=== PATIENT | male | born 1965 | race Caucasian/White ===

== ENCOUNTER 2021-10-07 19:37 | Inpatient (IN) | payer MEDICARE, SELFPAY ==
[2021-10-07] VITALS (7 sets, daily range): BP systolic 94–101; BP diastolic 56–62; PULSE 79–90; RESP 14–18; TEMP 36.4–37.1; O2SAT 87–99; BMI 39.8; BMI 38.9
--- NOTE | 2021-10-07 20:06 | CT_ITS ---
EXAM: CT HEAD WITHOUT INTRAVENOUS CONTRAST CLINICAL INDICATION: altered mental status RADIATION DOSE: CTDIvol = 44.99 mGy, DLP = 880.47 mGy-cm COMPARISON: None. FINDINGS: BRAIN AND EXTRA-AXIAL SPACES: Unremarkable. No intra- or extra-axial hemorrhage. No evidence of acute infarct. No intracranial mass or mass effect. There is preservation of the burt/white matter interface. Posterior fossa structures are unremarkable. Ventricles are appropriate for age. No hydrocephalus. Basal cisterns are patent. BONES/JOINTS: Unremarkable. No discrete lytic or blastic abnormalities. SINUSES: Unremarkable. Completely included. MASTOID AIR CELLS: Unremarkable. Clear. ORBITS: Visualized globes, extraocular muscles, optic nerves and retrobulbar fat appear unremarkable. CT/Brain/Head without Contrast IMPRESSION: Negative head/brain CT without intravenous contrast. Electronically Signed: Nikki Moss MD at 21:09 EDT ,
--- NOTE | 2021-10-07 20:06 | EKG12_ITS ---
Test Reason : DYSRHYTHMIA Blood Pressure : / mmHG Vent. Rate : 090 BPM Atrial Rate : 090 BPM P-R Int : 190 ms QRS Dur : 094 ms QT Int : 338 ms P-R-T Axes : 000 025 005 degrees QTc Int : 413 ms Normal sinus rhythm Normal ECG Confirmed by CHADD ALICEA, DANA ([id number]), online editor ASHLEIGH LOVELL ([id number]) on 10/08/2021 11:21:02 AM Referred By: YOSELIN Confirmed By:DANA FLORENTINO MD
[2021-10-07] MEDS: 0.9% Normal Saline 1,000 ML 1000 ML IV ×2 (20:10→21:29)
--- NOTE | 2021-10-07 20:10 | EX.ED.DYSGE1 ---
HPI History of Present Illness Chief Complaint: General Illness Narrative Narrative: 56-year-old male presenting with confusion, shakiness. Patient states he has been sleepy for the past 2 days. He does not remember the full day before this. He states that he was sleeping at [facility]. He remembers he was there with his father. He states that he woke up a couple of times after the first day that he does not remember and was very sleepy and was told to go back to sleep. He slept most of the second and third days. He states that he was sleeping on a mattress and kept falling off of it and hit his head on a cooler. He has a scratch on his forehead. Patient also states that he called his daughters today to pick him up at about 4 and they showed up at [address] back to the hospital they realized he forgot his wallet could not turn back around to the campground and then come back to the hospital. He is still complaining of generalized weakness and fatigue. He states his body is still shaky. He denies doing any alcohol. Patient has chronic pain and is on gabapentin, topiramate, baclofen, Dilaudid. He states he did not use more than his normal dose. He and his daughter stated that he has never overdosed on them. He denies any other illicit drugs. No fevers or chills. No cough or shortness of breath. [facility] Medical History Complex regional pain syndrome Diabetes Hypertension Tachycardia Allergy/AdvReac Type Severity Reaction Status Date / Time adhesive tape Allergy Other Verified 10/07/21 19:41 Sulfa (Sulfonamide Allergy Hives Verified 10/07/21 19:41 Antibiotics) Social History Smoking Status: Current every day smoker tobacco type: smokeless tobacco ROS ROS ED Constitutional Constitutional ED: Denies chills or fever(s) Eyes Eyes: Denies diplopia ENT ENT ED: Denies rhinorrhea or sore throat Cardiovascular Cardiovascular: Denies chest pain or palpitations Respiratory/Chest Respiratory/Chest: Denies cough or dyspnea Gastrointestinal Gastrointestinal: Denies abdominal pain or constipation Genitourinary Genitourinary ED: Denies dysuria or hematuria Musculoskeletal Musculoskeletal: Denies arthralgias or back pain Integumentary Denies abscess Neurologic Neurologic: Denies headache(s) or paresthesias Psychiatric Psychiatric: Denies anxiety or depression Endocrine Endocrinology: Denies cold intolerance or heat intolerance EXAM Physical Exam Const Vital Signs: 10/07/21 19:38 10/07/21 20:04 10/07/21 20:58 Temperature 97.5 F L Temperature Source Temporal Pulse Rate 90 Respiratory Rate 18 Respiratory Effort Normal Respiratory Pattern Normal Blood Pressure 96/56 L Blood Pressure Mean 69 Pulse Ox 92 87 Oxygen Delivery Method Room Air Room Air Oxygen Flow Rate (L/min) 10/07/21 20:59 10/07/21 21:00 Temperature Temperature Source Pulse Rate 84 Respiratory Rate 17 Respiratory Effort Respiratory Pattern Blood Pressure 94/62 Blood Pressure Mean 72 Pulse Ox 93 93 Oxygen Delivery Method Nasal Cannula Nasal Cannula Oxygen Flow Rate (L/min) 2 2 Positive obese and unkempt General Appearance ED: unkempt; Negative for pallor Nutritional Appearance: obese HEENT Reports dry mucous membranes Mouth ED: Yes dry mucous membranes Mouth: dry mucous membranes Eyes PERRL and EOMs intact bilaterally General Eye ED: Yes pale conjunctiva and scleral icterus Chest Wall inspection of chest normal and palpation of chest normal Resp normal respiratory effort and clear to auscultation bilaterally Cardio regular rate, regular rhythm and S1 normal heart sound GI normal to inspection, nondistended, normoactive bowel sounds Back/Spine no CVA tenderness Extremity General Extremety ED: Negative for edema or tenderness General Extremity: Negative for edema Neuro oriented x3, CN's II-XII intact bilaterally and no sensory deficits noted Sensorium / Orientation: alert Motor Exam: strength 5/5 throughout Psych mental status grossly normal Appearance: unkempt Skin no rashes or lesions noted General Skin Exam: Negative for jaundice or pallor MDM MDM MDM Narrative Medical decision making narrative: Presenting with a vague story of not remembering the last few days as well as vomiting when he woke up. Has been sleeping at a campground in the heat. He states he is not able to hold down fluids. He denied alcohol abuse or use. His EtOH is negative. Drug review screen is positive for opioids but he is prescribed these. CBC shows a leukocytosis of 15.2 which is likely from vomiting because his chest x-ray on my interpretation shows no acute cardiopulmonary process. His urinalysis is negative for infection. Hemoglobin is normal at 14.4. Platelets 335. Potassium slightly elevated at 5.4. Patient's EKG shows a sinus rhythm with ventricular 90 bpm without sign of ischemic change or dysrhythmia. No hyperacute T's. She will be treated with IV fluids. Creatinine is elevated at 6.15 and a BUN of 55. Patient states that he has no history of kidney problems and he gets his blood work checked all the time. I did look on [employer] and I cannot find any lab values on him except for drug screens for pain management. Given this I will treat him as acute kidney injury. He was given 2 L of IV fluids while in the ER. His urine was very dark. I did order a CPK which came back at 5500. CT of the brain is negative for acute findings. I spoke with the hospitalist for admission. Impression: 1. Acute kidney injury 2. Leukocytosis 3. Rhabdomyolysis 4. Hyperkalemia Lab Data Attestation: I reviewed the patient's lab results. Labs: Laboratory Results - last 24 hr 10/07/21 10/07/21 10/07/21 20:00 20:00 20:00 WBC 15.2 H RBC 4.66 Hgb 14.4 Hct 45.0 MCV 96.6 H MCH 30.9 MCHC 32.0 RDW Std Deviation 49.5 H RDW Coeff of Diane 13.9 Plt Count 335 MPV 10.3 Immature Gran % (Auto) 0.300 Neut % (Auto) 75.7 H Lymph % (Auto) 17.0 L [place] % (Auto) 6.0 Eos % (Auto) 0.7 Baso % (Auto) 0.3 Absolute Neuts (auto) 11.5 H Absolute Lymphs (auto) 2.58 Nucleated RBC % 0 Sodium 135 L Potassium 5.4 H Chloride 102 Carbon Dioxide 21.0 Anion Gap 12 BUN 55 H Creatinine 6.15 H Estim Creat Clear Calc 12.98 Est GFR (MDRD) Af Amer 12 L Est GFR (MDRD) Non-Af 10 L BUN/Creatinine Ratio 8.9 L Glucose 108 H Calcium 9.4 Total Bilirubin 0.70 AST 135 H ALT 48 Alkaline Phosphatase 113 Total Creatine Kinase Troponin I High Sens 7 Total Protein 8.3 H Albumin 4.3 Globulin 4.0 Albumin/Globulin Ratio 1.1 Urine Color Urine Clarity Urine pH Ur Specific [place] Urine Protein Urine Glucose (UA) Urine Ketones Urine Occult Blood Urine Nitrite Urine Bilirubin Urine Urobilinogen Ur Leukocyte Esterase Urine RBC Urine WBC Ur Squamous Epith Cells Calcium Oxalate Crystal Urine Bacteria Hyaline Casts Urine Mucus Urine Opiates Screen Urine Methadone Screen Ur Barbiturates Screen Ur Phencyclidine Scrn Ur Amphetamines Screen MDMA (Ecstasy) Screen U Benzodiazepines Scrn Urine Cocaine Screen U Cannabinoids Screen Ur Drug Screen Comment Ethyl Alcohol 13.0 10/07/21 10/07/21 10/07/21 20:00 20:10 20:10 WBC RBC Hgb Hct MCV MCH MCHC RDW Std Deviation RDW Coeff of Diane Plt Count MPV Immature Gran % (Auto) Neut % (Auto) Lymph % (Auto) [place] % (Auto) Eos % (Auto) Baso % (Auto) Absolute Neuts (auto) Absolute Lymphs (auto) Nucleated RBC % Sodium Potassium Chloride Carbon Dioxide Anion Gap BUN Creatinine Estim Creat Clear Calc Est GFR (MDRD) Af Amer Est GFR (MDRD) Non-Af BUN/Creatinine Ratio Glucose Calcium Total Bilirubin AST ALT Alkaline Phosphatase Total Creatine Kinase 5531 H Troponin I High Sens Total Protein Albumin Globulin Albumin/Globulin Ratio Urine Color Yellow Urine Clarity Clear Urine pH 5.0 Ur Specific [place] 1.025 Urine Protein 30 H Urine Glucose (UA) 250 H Urine Ketones 5 H Urine Occult Blood 10 H Urine Nitrite Negative Urine Bilirubin 1 H Urine Urobilinogen 1 H Ur Leukocyte Esterase 25 H Urine RBC 0 SEEN Urine WBC 0-5 SEEN Ur Squamous Epith Cells 0-5 SEEN Calcium Oxalate Crystal 1+ Urine Bacteria 0 SEEN Hyaline Casts 10-25 SEEN Urine Mucus 0 SEEN Urine Opiates Screen POSITIVE H Urine Methadone Screen NEGATIVE Ur Barbiturates Screen NEGATIVE Ur Phencyclidine Scrn NEGATIVE Ur Amphetamines Screen NEGATIVE MDMA (Ecstasy) Screen NEGATIVE U Benzodiazepines Scrn NEGATIVE Urine Cocaine Screen NEGATIVE U Cannabinoids Screen NEGATIVE Ur Drug Screen Comment Ethyl Alcohol Radiography Diagnostic Testing: Clinical Impression(s) from Imaging Studies Brain CT 10/07/21 20:06 IMPRESSION: Negative head/brain CT without intravenous contrast. Electronically Signed: Nikki Moss MD at 21:09 EDT , Chest X-Ray 10/07/21 20:35 IMPRESSION: Mild pulmonary hypoinflation. No radiographic evidence of acute cardiopulmonary disease. Electronically Signed: Nikki Moss MD at 21:15 EDT , Discharge Plan Triage Chief Complaint: General Illness ED Provider: Jorge Luis Roque Dx/Rx/DC Orders Primary Care Provider: NORRIS SIMMS Referrals: NOT,DEFINED [NON-STAFF] -
[2021-10-07] MEDS: Ondansetron 4 MG/2 ML Vial IV (20:16)
[2021-10-07 20:23] LABS: Bacteria 0 SEEN /hpf (None Seen); Mucous, Urine 0 SEEN /hpf (<or=2+); Red Blood Cells-Urine 0 SEEN /hpf (0-5)
[2021-10-07 20:26] LABS: Absolute Lymphocyte Count 2.58 X10^3/uL (0.83-4.51); Absolute Neutrophil Count 11.5 X10^3/uL (2.0-7.7); Basophil# 0.05 X10^3/uL; Basophil% 0.3 % (0-1); Eosinophil# 0.11 X10^3/uL; Eosinophils% 0.7 % (0-5); Hemoglobin 14.4 g/dL (13.0-16.5); Lymphocyte # 2.58 X10^3/ul (0.83-4.51); Mean Corpuscular Hgb 30.9 pg (27.0-32.0); Mean Corpuscular Volume 96.6 fL (80-94); Mean Platelet Vol. 10.3 fl (6.2-12.0); Monocyte# 0.92 X10^3/uL; NRBC Flagged by Analyzer 0 % (0-5); Neutrophil # 11.51 X10^3/uL (2.7-7.7); Neutrophil % 75.7 % (47-70); Platelet Count 335 K/mm3 (150-450); RBC Distribution Width CV 13.9 % (11.6-14.6); RBC Distribution Width SD 49.5 fl (35.1-43.9); Red Blood Count 4.66 M/mm3 (4.6-6.2); White Blood Count 15.2 K/mm3 (4.4-11.0)
[2021-10-07 20:29] LABS: Color, Urine Yellow (Yellow); Glucose, Dipstick 250 mg/dl (Normal); Ketone-Dipstick 5 mg/dl (Negative); Leukocyte Esterase-Dipstick 25 /ul (Negative); Nitrite-Dipstick Negative (Negative); Occult Blood-Urine 10 /ul (Negative); Protein-Dipstick 30 mg/dl (Negative); Specific Gravity, Urine 1.025 (1.002-1.030); Urine Clarity Clear (Clear); Urine Urobilinogen 1 mg/dl (Normal)
[2021-10-07 20:31] LABS: Urine Bilirubin Dipstick 1 mg/dL (Negative)
[2021-10-07 20:35] LABS: White Blood Cells 0-5 SEEN /hpf (0-5)
--- NOTE | 2021-10-07 20:35 | RAD_ITS ---
EXAM: XR CHEST, 1 VIEW CLINICAL INDICATION: altered mental status TECHNIQUE: Frontal portable view of the chest. This report was created using [employer] report generation technology. COMPARISON: None. FINDINGS: LUNGS AND PLEURAL SPACES: Unremarkable with the exception of mildly low lung volumes and minimal vascular crowding in the lung bases. No consolidation or edema. No pneumothorax. No effusion. HEART: Unremarkable. Cardiac silhouette not enlarged. MEDIASTINUM: Central airways and mediastinal contour are unremarkable. BONES/JOINTS: Unremarkable. SOFT TISSUES: Unremarkable. RAD/Chest 1 View (Portable) IMPRESSION: Mild pulmonary hypoinflation. No radiographic evidence of acute cardiopulmonary disease. Electronically Signed: Nikki Moss MD at 21:15 EDT ,
[2021-10-07 20:36] LABS: Calcium Oxalate Crystals Ur 1+ /hpf (<or=2+); Squamous Epithelial Cells - UA 0-5 SEEN /hpf (0-5)
[2021-10-07 20:39] LABS: Hyaline Cast 10-25 SEEN /lpf (0-5)
[2021-10-07 20:42] LABS: Amphetamine Urine VISTA NEGATIVE (<1000 ng/mL); Barbiturate Urine VISTA NEGATIVE (< 200 ng/mL); Benzodiazepine Urine VISTA NEGATIVE (< 200 ng/mL); Cocaine Urine VISTA NEGATIVE (< 300 ng/mL); Ecstacy Urine VISTA NEGATIVE (< 500 ng/mL); Methadone Urine VISTA NEGATIVE (< 300 ng/mL); PCP Urine VISTA NEGATIVE (< 25 ng/mL); THC Urine VISTA NEGATIVE (< 50 ng/mL); Vista UDS pH Range 5
[2021-10-07 20:45] LABS: ALB/GLOB Ratio 1.1 RATIO (0.9-2.4); AST(SGOT) 135 U/L (15-37); Alanine Aminotransfer ALT/SGPT 48 U/L (16-61); Albumin, Serum 4.3 g/dL (3.2-5.0); Alkaline Phosphatase 113 U/L (45-117); Anion Gap 12 (5-15); BUN 55 mg/dL (7-18); BUN/Creat Ratio 8.9 RATIO (10-20); Calcium,Total 9.4 mg/dL (8.5-10.1); Chloride 102 mmol/L (98-107); Creatinine, Serum 6.15 mg/dL (0.70-1.30); EST Glomerular Filtration Rate 10 mL/min (>60); Est Glom Filt Rate - Afr Amer 12 mL/min (>60); Estimated Creatinine Clearance 12.98 ml/min; Glucose 108 mg/dL (74-106); Potassium 5.4 mmol/L (3.5-5.1); Protein, Total 8.3 g/dL (6.4-8.2); Sodium Level 135 mmol/L (136-145); Troponin-I HS 7 pg/mL (3.0-78.0)
[2021-10-07 21:20] LABS: CPK Total, Creatine Kinase 5531 U/L (39-308)
--- NOTE | 2021-10-07 21:36 | HP.PCM.HOS_ITS ---
[facility] - General General Date of Admission: 10/07/21 Date of Service: 10/07/21 Chief Complaint: confusion. falls. ataxia. HPI Narrative FRANSISCO RODRIGUEZ, is a 56 M who presents presents with confusion. Patient fell today, and bed is also been noted to be tremulous. Patient has been at a campground for the past few days during extremely high temperatures. Patient has been drinking Pedialyte and presents with these above symptoms. Patient presents emergency room and was found to have acute kidney injury with a creatinine of 6.15. No baseline labs are available but family states that the patient is compliant with following up dispositions and the kidney function has never been an issue that they have been aware of in the past. Patient received 2 L of fluids in the emergency room and the daughter, who is present at bedside, notes the patient is more alert since he has been here. [facility] Medical History (Updated 10/07/21 @ 21:[address] Aaron Meeks DO) Complex regional pain syndrome Diabetes Hypertension Sleep apnea Tachycardia Allergy/AdvReac Type Severity Reaction Status Date / Time adhesive tape Allergy Other Verified 10/07/21 19:41 Sulfa (Sulfonamide Allergy Hives Verified 10/07/21 19:41 Antibiotics) Social History (Updated 10/07/21 @ 21:[address] Aaron Meeks DO) Smoking Status: Current every day smoker tobacco type: smokeless tobacco substance use type: does not use Vital Signs Vital Signs Vital Signs: 10/07/21 19:38 10/07/21 20:04 10/07/21 20:58 Temperature 36.4 C L Temperature Source Temporal Pulse Rate 90 Respiratory Rate 18 Respiratory Effort Normal Respiratory Pattern Normal Blood Pressure 96/56 L Blood Pressure Mean 69 Pulse Ox 92 87 Oxygen Delivery Method Room Air Room Air Oxygen Flow Rate (L/min) 10/07/21 20:59 10/07/21 21:00 10/07/21 21:30 Temperature 36.5 C L Temperature Source Temporal Pulse Rate 84 80 Respiratory Rate 17 14 Respiratory Effort Respiratory Pattern Blood Pressure 94/62 94/57 L Blood Pressure Mean 72 69 Pulse Ox 93 93 96 Oxygen Delivery Method Nasal Cannula Nasal Cannula Nasal Cannula Oxygen Flow Rate (L/min) 2 2 2 Weight Weight: 118.841 kg Body Mass Index (BMI) 39.8 Physical Exam Const alert Constitutional Narrative: groggy HEENT normocephalic, head/scalp atraumatic, hearing grossly normal bilaterally and moist oral mucous membranes Eyes PERRL and EOMs intact bilaterally Neck no lymphadenopathy Neck Narrative: no thyromegaly Resp normal respiratory effort, no retractions, no use of accessory muscles and clear to auscultation bilaterally Cardio regular rate, regular rhythm, S1 normal heart sound and S2 normal heart sound GI normal to inspection, nondistended, normoactive bowel sounds and soft to palpation GI Narrative: Protuberant Extremity normal to inspection and full ROM Neuro CN's II-XII intact bilaterally, moves all extremities and no focal motor deficits Neuro Narrative: No tremors Psych Mood & Affect: anxious Results Lab / Micro Data Attestation: I reviewed the patient's lab results. Result Diagrams: 10/07/21 20:00 10/07/21 20:00 Labs: Laboratory Results - last 24 hr 10/07/21 20:00: WBC 15.2 H, RBC 4.66, Hgb 14.4, Hct 45.0, MCV 96.6 H, MCH 30.9, MCHC 32.0, RDW Std Deviation 49.5 H, RDW Coeff of Diane 13.9, Plt Count 335, MPV 10.3, Immature Gran % (Auto) 0.300, Neut % (Auto) 75.7 H, Lymph % (Auto) 17.0 L, [place] % (Auto) 6.0, Eos % (Auto) 0.7, Baso % (Auto) 0.3, Absolute Neuts (auto) 11.5 H, Absolute Lymphs (auto) 2.58, Nucleated RBC % 0 10/07/21 20:00: Sodium 135 L, Potassium 5.4 H, Chloride 102, Carbon Dioxide 21.0, Anion Gap 12, BUN 55 H, Creatinine 6.15 H, Estim Creat Clear Calc 12.98, Est GFR (MDRD) Af Amer 12 L, Est GFR (MDRD) Non-Af 10 L, BUN/Creatinine Ratio 8.9 L, Glucose 108 H, Calcium 9.4, Total Bilirubin 0.70, AST 135 H, ALT 48, Alkaline Phosphatase 113, Troponin I High Sens 7, Total Protein 8.3 H, Albumin 4.3, Globulin 4.0, Albumin/Globulin Ratio 1.1 10/07/21 20:00: Ethyl Alcohol 13.0 10/07/21 20:00: Total Creatine Kinase 5531 H 10/07/21 20:10: Urine Color Yellow, Urine Clarity Clear, Urine pH 5.0, Ur Specific [place] 1.025, Urine Protein 30 H, Urine Glucose (UA) 250 H, Urine Ketones 5 H, Urine Occult Blood 10 H, Urine Nitrite Negative, Urine Bilirubin 1 H, Urine Urobilinogen 1 H, Ur Leukocyte Esterase 25 H, Urine RBC 0 SEEN, Urine WBC 0-5 SEEN, Ur Squamous Epith Cells 0-5 SEEN, Calcium Oxalate Crystal 1+, Urine Bacteria 0 SEEN, Hyaline Casts 10-25 SEEN, Urine Mucus 0 SEEN 10/07/21 20:10: Urine Opiates Screen POSITIVE H, Urine Methadone Screen NEGATIVE, Ur Barbiturates Screen NEGATIVE, Ur Phencyclidine Scrn NEGATIVE, Ur Amphetamines Screen NEGATIVE, MDMA (Ecstasy) Screen NEGATIVE, U Benzodiazepines Scrn NEGATIVE, Urine Cocaine Screen NEGATIVE, U Cannabinoids Screen NEGATIVE, Ur Drug Screen Comment EKG Initial EKG: Attestation: I personally reviewed and interpreted this EKG as follows: Prior EKG tracings: available for review EKG Rhythm Intrepretation: Sinus Rhythm Radiology Impression Brain CT 10/07/21 20:06 IMPRESSION: Negative head/brain CT without intravenous contrast. Electronically Signed: Nikki Moss MD at 21:09 EDT , Chest X-Ray 10/07/21 20:35 IMPRESSION: Mild pulmonary hypoinflation. No radiographic evidence of acute cardiopulmonary disease. Electronically Signed: Nikki Moss MD at 21:15 EDT , Assessment & Plan Assessment/Plan (1) HEBERT (acute kidney injury): (2) Rhabdomyolysis: (3) Toxic encephalopathy: (4) Complex regional pain syndrome: PLAN: Plan 1. Acute kidney injury Suspect prerenal given recent high temperatures and the lack of air conditioning that patient has been experiencing at home as well at campgrounds. Plan: * IV fluids * Check urine sodium and creatinine * If worse, consider renal ultrasound and nephrology consultation. * No need for renal replacement therapy at this time. 2. Rhabdomyolysis Atraumatic from what I can gather Plan: * IV fluids * And follow-up CPK in the morning 3. Toxic encephalopathy Likely due to combination of metabolites with his renal failure due to gabapentin, baclofen and oxymorphone Plan: Hold potentiating medications for now 4. Complex regional pain syndrome Patient had a crush injury to his foot and his CRS has creeped up his legs since then. Had had a pain pump installed at 1 point but developed a MRSA infection and that was subsequently removed. Plan: * Explained to the patient and his daughters that I will be holding all of these potentiating medications given his confusion and ataxia that he had presenting * I did review the patient's [place] patient has been receiving prescriptions of oxymorphone 20 mg twice daily. Last time this was filled was on September 07. * No signs symptoms of opiate withdrawal at this point time but patient at higher risk of going through opiate withdrawal given his chronic use. Once patient mental status has returned to baseline then would recommend resuming his narcotics to prevent him going through withdrawal. * I would hold off on resuming gabapentin until his metabolic derangements are much improved * I told him I will start him on a Lidoderm patch. Acknowledged that it may not offer him much relief given the amount of medications that he takes but I have to hold his medications given his present confusion. * I will not start any acetaminophen because patient apparently has had hepatic inflammation due to Percocet in the past. Presumably this was due to the acetaminophen. 5. Diabetes mellitus type 2 Plan: Sliding scale insulin 6. VTE prophylaxis with subcu heparin 7. Hypoxia Present on arrival Unclear if patient has chronic hypoxia due to his untreated sleep apnea Patient had been on's BiPAP in the past but due to high pressures and air leaking he has stopped using. Plan: * Checkup rapid COVID * Check pulmonary records from [place] where he has been before. * Wean oxygen as tolerated 8. COVID-19 vaccination status: Patient has been vaccinated and boosted. Charges/Coding Visit Charges Inpatient E&M: 66293 Init Hosp L3
[2021-10-07 22:17] LABS: Urine Sodium 17 mmol/L (Not Establ.)
[2021-10-07] MEDS: 0.9% Normal Saline 1,000 ML 200 ML IV (23:02)
[2021-10-07] MEDS: Heparin Injection (Vial) 5,000 UNIT/ML VIAL 5000 UNIT SC (23:03)
[2021-10-08] VITALS (36 sets, daily range): BP systolic 66–131; BP diastolic 42–88; PULSE 65–98; RESP 13–25; TEMP 36.2–37.7; O2SAT 91–100
[2021-10-08 00:10] LABS: Bedside Glucose 63 mg/dL (74-106)
[2021-10-08] MEDS: Dextrose 10%-Water 250 ML 999 ML IV (00:40)
[2021-10-08 00:45] LABS: Bedside Glucose 69 mg/dL (74-106)
[2021-10-08] MEDS: Naloxone 0.4 MG/ML Syringe (01:08)
[2021-10-08] MEDS: Naloxone 0.4 MG/ML Syringe IV (01:08)
[2021-10-08] MEDS: LORazepam 2 MG/ML Syringe IV ×2 (01:09→01:10)
--- NOTE | 2021-10-08 01:33 | PN.HOSP_ITS ---
Subjective Subjective Rapid response team called because of profound somnolence. Patient was very difficult to arouse and required a sternal rub. Came to evaluate the patient and the patient was awake but minimally conversant. He had dozed off and received 0.4 of Narcan. Patient still very somnolent and confused and perseverating repeating at different times 20, medicine and some other incomprehensible words. He received another 0.4 of Narcan and became very agitated was writhing moving his legs was awake. Patient did receive a total of 4 mg of lorazepam. Patient still very agitated and patient was transferred to the intensive care unit. Objective Data Objective Data Vital Signs: Vital Signs Temp Pulse Resp BP Pulse Ox 37.1 C 79 18 101/58 L 99 10/07/21 22:20 10/07/21 22:37 10/07/21 22:20 10/07/21 22:20 10/07/21 22:20 Oxygen Flow Rate (L/min) 2 Oxygen Delivery Method Nasal Cannula Weight: 118 kg Body Mass Index (BMI) 38.9 Intake & Output: Intake and Output for Last 24 Hours 10/06/21 10/07/21 10/08/21 23:59 23:59 23:59 Intake Total 2119 / 2119 250 / 250 Balance 2119 / 2119 250 / 250 Lab / Micro Data Result Diagrams: 10/07/21 20:00 10/07/21 20:00 Labs: Laboratory Results - last 24 hr 10/07/21 20:00: WBC 15.2 H, RBC 4.66, Hgb 14.4, Hct 45.0, MCV 96.6 H, MCH 30.9, MCHC 32.0, RDW Std Deviation 49.5 H, RDW Coeff of Diane 13.9, Plt Count 335, MPV 10.3, Immature Gran % (Auto) 0.300, Neut % (Auto) 75.7 H, Lymph % (Auto) 17.0 L, [place] % (Auto) 6.0, Eos % (Auto) 0.7, Baso % (Auto) 0.3, Absolute Neuts (auto) 11.5 H, Absolute Lymphs (auto) 2.58, Nucleated RBC % 0 10/07/21 20:00: Sodium 135 L, Potassium 5.4 H, Chloride 102, Carbon Dioxide 21.0, Anion Gap 12, BUN 55 H, Creatinine 6.15 H, Estim Creat Clear Calc 12.98, Est GFR (MDRD) Af Amer 12 L, Est GFR (MDRD) Non-Af 10 L, BUN/Creatinine Ratio 8.9 L, Glucose 108 H, Calcium 9.4, Total Bilirubin 0.70, AST 135 H, ALT 48, Alkaline Phosphatase 113, Troponin I High Sens 7, Total Protein 8.3 H, Albumin 4.3, Globulin 4.0, Albumin/Globulin Ratio 1.1 10/07/21 20:00: Ethyl Alcohol 13.0 10/07/21 20:00: Total Creatine Kinase 5531 H 10/07/21 20:00: Ur Random Sodium 17, Urine Creatinine 369.00 10/07/21 20:10: Urine Color Yellow, Urine Clarity Clear, Urine pH 5.0, Ur Specific [place] 1.025, Urine Protein 30 H, Urine Glucose (UA) 250 H, Urine Ketones 5 H, Urine Occult Blood 10 H, Urine Nitrite Negative, Urine Bilirubin 1 H, Urine Urobilinogen 1 H, Ur Leukocyte Esterase 25 H, Urine RBC 0 SEEN, Urine WBC 0-5 SEEN, Ur Squamous Epith Cells 0-5 SEEN, Calcium Oxalate Crystal 1+, Urine Bacteria 0 SEEN, Hyaline Casts 10-25 SEEN, Urine Mucus 0 SEEN 10/07/21 20:10: Urine Opiates Screen POSITIVE H, Urine Methadone Screen NEGATIVE, Ur Barbiturates Screen NEGATIVE, Ur Phencyclidine Scrn NEGATIVE, Ur Amphetamines Screen NEGATIVE, MDMA (Ecstasy) Screen NEGATIVE, U Benzodiazepines Scrn NEGATIVE, Urine Cocaine Screen NEGATIVE, U Cannabinoids Screen NEGATIVE, Ur Drug Screen Comment 10/07/21 22:51: POC Glucose 63 L 10/08/21 00:33: POC Glucose 69 L Micro: Microbiology 10/07/21 22:29 Nasal Secretion SARS-CoV-2 Antigen (Rapid) - Final Radiography Diagnostic Testing: Radiology Impression Brain CT 10/07/21 20:06 IMPRESSION: Negative head/brain CT without intravenous contrast. Electronically Signed: Nikki Moss MD at 21:09 EDT , Chest X-Ray 10/07/21 20:35 IMPRESSION: Mild pulmonary hypoinflation. No radiographic evidence of acute cardiopulmonary disease. Electronically Signed: Nikki Moss MD at 21:15 EDT , Physical Exam Const General Appearance: uncooperative Orientation / Consciousness: confused HEENT head/scalp atraumatic and moist oral mucous membranes Head and Scalp: normocephalic Eyes Eyes Narrative: Dilated pupils but reactive. Patient had just received Narcan. GI non-distended and hepatosplenomegaly Extremity normal to inspection Neuro oriented x3 Assessment & Plan Assessment/Plan (1) HEBERT (acute kidney injury): (2) Rhabdomyolysis: (3) Toxic encephalopathy: (4) Complex regional pain syndrome: PLAN: Plan 1. Acute kidney injury Suspect prerenal given recent high temperatures and the lack of air conditioning that patient has been experiencing at home as well at campgrounds. Plan: * IV fluids * Check urine sodium and creatinine * If worse, consider renal ultrasound and nephrology consultation. * No need for renal replacement therapy at this time. 2. Rhabdomyolysis Atraumatic from what I can gather Plan: * IV fluids * And follow-up CPK in the morning 3. Toxic encephalopathy Likely due to combination of metabolites with his renal failure due to gabapentin, baclofen and oxymorphone Worse this morning in which a rapid response team was called. Patient did receive Narcan which she seemed to become more agitated. I feel that the increased agitation is probably due to possibly some withdrawal symptoms he may still been confused because of the metabolites from his other medications that he takes. Patient did require 4 mg of lorazepam which seemed to have calmed him down but still very agitated. A Precedex drip has been ordered. Patient due to his level of care has been transferred to the ICU and will have womens volleyball coach c onsultation. Patient did require 4 restraints for his severe agitation and throwing his arms and legs around which would be a potential risk to himself as well as staff. 4. Complex regional pain syndrome Patient had a crush injury to his foot and his CRS has creeped up his legs since then. Had had a pain pump installed at 1 point but developed a MRSA infection and that was subsequently removed. Plan: * Earlier explained to the patient and his daughters that I will be holding all of these potentiating medications given his confusion and ataxia that he had presenting * I did review the patient's OAR[place] the patient has been receiving prescriptions of oxymorphone 20 mg twice daily. Last time this was filled was on September 07. * No signs symptoms of opiate withdrawal at this point time but patient at higher risk of going through opiate withdrawal given his chronic use. Once patient mental status has returned to baseline then would recommend resuming his narcotics to prevent him going through withdrawal. * I would hold off on resuming gabapentin until his metabolic derangements are much improved * I told him I will start him on a Lidoderm patch. Acknowledged that it may not offer him much relief given the amount of medications that he takes but I have to hold his medications given his present confusion. * I will not start any acetaminophen because patient apparently has had hepatic inflammation due to Percocet in the past. Presumably this was due to the acetaminophen. 5. Diabetes mellitus type 2 Plan: Sliding scale insulin 6. VTE prophylaxis with subcu heparin 7. Hypoxia Present on arrival Unclear if patient has chronic hypoxia due to his untreated sleep apnea Patient had been on's BiPAP in the past but due to high pressures and air leaking he has stopped using. Rapid COVID-negative Plan: * Check pulmonary records from [place] where he has been before. * Wean oxygen as tolerated 8. COVID-19 vaccination status: Patient has been vaccinated and boosted. Greater than 60 minutes spent at bedside during patient encounter involving the rapid response team, ordering medications and observing response and being physically present during the patient's transferred to the intensive care unit. Charges/Coding Visit Charges Inpatient E&M: [id number] [facility] [place] H[facility] L3
[2021-10-08] MEDS: 0.9% Normal Saline 1,000 ML 200 ML IV (04:03)
[2021-10-08] MEDS: Lidocaine 5% Patch 1 PATCH TOPICAL (04:38)
[2021-10-08] MEDS: TITRATION PARAMETER CHANGE 1 EACH IV (04:39)
[2021-10-08 04:40] LABS: Absolute Lymphocyte Count 1.64 X10^3/uL (0.83-4.51); Absolute Neutrophil Count 8.7 X10^3/uL (2.0-7.7); Basophil# 0.03 X10^3/uL; Basophil% 0.3 % (0-1); Eosinophil# 0.14 X10^3/uL; Eosinophils% 1.3 % (0-5); Hematocrit 38.1 % (40-54); Lymphocyte # 1.64 X10^3/ul (0.83-4.51); Lymphocyte % 14.7 % (19-41); Mean Corp Hgb Conc 31.5 g/dL (32-36); Mean Corpuscular Hgb 31.3 pg (27.0-32.0); Mean Corpuscular Volume 99.5 fL (80-94); Monocyte# 0.58 X10^3/uL; Monocyte% 5.2 % (0-10); NRBC Flagged by Analyzer 0 % (0-5); Neutrophil # 8.73 X10^3/uL (2.7-7.7); Neutrophil % 78.2 % (47-70); Platelet Count 215 K/mm3 (150-450); RBC Distribution Width CV 13.9 % (11.6-14.6); RBC Distribution Width SD 49.9 fl (35.1-43.9); Red Blood Count 3.83 M/mm3 (4.6-6.2); White Blood Count 11.2 K/mm3 (4.4-11.0)
[2021-10-08] MEDS: CHLORHEXIDINE GLUC 2% CLOTH 1 EACH TOWELETTE TOPICAL (05:00)
[2021-10-08 05:16] LABS: Anion Gap 10 (5-15); BUN 51 mg/dL (7-18); BUN/Creat Ratio 9.9 RATIO (10-20); CPK Total, Creatine Kinase 3259 U/L (39-308); Calcium,Total 7.7 mg/dL (8.5-10.1); Chloride 109 mmol/L (98-107); Creatinine, Serum 5.13 mg/dL (0.70-1.30); EST Glomerular Filtration Rate 12 mL/min (>60); Est Glom Filt Rate - Afr Amer 15 mL/min (>60); Estimated Creatinine Clearance 15.56 ml/min; Glucose 127 mg/dL (74-106); Potassium 4.7 mmol/L (3.5-5.1); Sodium Level 138 mmol/L (136-145)
[2021-10-08] MEDS: 0.9% Saline Lock 10 ML Syringe IV ×2 (06:28→22:28)
[2021-10-08 06:30] LABS: Bedside Glucose 119 mg/dL (74-106)
[2021-10-08] MEDS: LACTATED RINGERS 500 ML 999 ML IV (06:30)
--- NOTE | 2021-10-08 06:36 | EX.PCM.CONCC ---
Assessment & Plan Assessment/Plan (1) Toxic encephalopathy: (2) HEBERT (acute kidney injury): (3) Complex regional pain syndrome: (4) Rhabdomyolysis: PLAN: Plan RECOMMENDATIONS: 1. Change IV fluids from normal saline to LR 2. Bolus as needed for hypotension 3. Continue Precedex 4. Attempt discontinuation of restraints 5. Wean oxygen as tolerated IMPRESSIONS: 1. Acute kidney injury of unclear etiology Patient does have elevated CPK, but this does not appear to be at a level that would suggest this amount of renal dysfunction. It is possible that this is trending downward. Patient does have hyaline casts. Patient's blood pressures are soft, so fluid resuscitation will be used. Patient will be transition to LR given hyperchloremia. No significant ectopy to require supplementation. Patient has had incontinence per nursing, so does not appear to be oliguric. Will attempt to avoid Tyler catheter given problem #2. Patient does appear to be responding to therapy thus far. We will hold on a renal consult for now 2. Toxic encephalopathy Unclear etiology. Patient does take many medications that could be affected by problem #1. All of these have been placed on hold. We will continue to monitor mental status. Attempt to discontinue restraints when possible. Patient is on Precedex to help facilitate removal of restraints. Patient did report that he was not drinking alcohol, but had an alcohol level. Unclear if patient has issues with alcohol. We will need to discuss with family. 3. Mild hypoxic respiratory insufficiency Unclear etiology. Patient is relatively sedated at this time. Patient may have an element of pulmonary hypertension given failure to comply with BiPAP therapy. We will continue to wean supplemental oxygen as tolerated. Attempt to keep saturations between 90 and 94%. Patient does not have an elevated bicarbonate to suggest chronic CO2 retention, but does have a tobacco history. Outpatient pulmonary function test would be helpful for quantification clarification of lung function. 4. Complex regional pain syndrome/morbid obesity/poor history Complicates care, management, recovery and prognosis. Patient has been started on a Lidoderm patch. Opiate withdrawal is a concern and will need to be monitored. Addendum 12:30 PM: Patient with persistent hypotension throughout the morning despite IV fluid boluses and bicarbonate. An ABG was obtained showing a predominantly metabolic acidosis. Patient will open his eyes and interact briefly, but still remains very encephalopathic. Family was contacted and agreed to a central line. Central line has been placed and patient will be initiated on Levophed. Will defer bicarbonate drip to nephrology. They have been contacted, but have not evaluated the patient as of yet. TIME: 35 minutes critical care time, in addition to initial assessment, was spent addressing patient's acute kidney injury, hypotension, hypoxia, review of all data and collaboration with care team HPI Consult Data Date of Consult: 10/08/21 HPI Narrative Reason for Consultation: Encephalopathy HPI Narrative: FRANSISCO RODRIGUEZ is a 56 M, with past medical history listed below, who presented to [facility] 10[facility]07[facility] secondary to confusion and shakiness. Patient reportedly had been sleepy for the last 2 days with little memory of previous events. Patient reportedly had been camping. Patient reportedly had slept 2 to 3 days. Patient's daughters came to pick him up and realized he forgot his wallet and brought him to the ER for evaluation. At that time, patient was reporting generalized weakness and fatigue. Patient denied any alcohol, but is chronically on gabapentin, Topamax, baclofen and Dilaudid for pain. Patient reportedly does not take more than he is prescribed. Patient reportedly had not had any fevers, chills, cough, shortness of breath or other constitutional complaints per family. Patient does use tobacco on a routine basis. In the ER, patient was afebrile, but slightly hypotensive with a blood pressure of 96/56. Patient was noted to be 87% on room air, so was placed on 2 L nasal cannula. Laboratory work-up showed a white blood cell count of 15.2, hemoglobin of 14.4 and platelets of 335. Potassium was elevated at 5.4 and creatinine was elevated at 55/6.15. Liver function studies were relatively unremarkable. Patient did have an alcohol level of 13 and a CK of 5531. UA did show some hyaline casts and tox screen was positive for opiates. A CT of the head was unremarkable and chest x-ray showed only mild hypoinflation. Patient was given IV fluids and admitted to the hospital on the PCU for work-up. While on the floor, patient became increasingly agitated. Patient subsequently was transferred to the intensive care unit. Patient has received 4 mg of Ativan, Precedex and Narcan. Patient currently is comfortable and is out of four-point restraints. Patient does remain impulsive and requiring two-point restraints. Patient reportedly does have a history of LILLY, but is unable to tolerate BiPAP therapy. Patient is not able to answer any of my questions given his encephalopathy. The majority of the information was provided by the electronic medical record and report with nursing. [facility] Medical History Complex regional pain syndrome Diabetes Hypertension Sleep apnea Tachycardia Home Medications allopurinol 100 mg tablet 100 tab PO BID Check with primary doctor 10/08/21 [History Last Taken Unknown] baclofen 10 mg tablet 1 tab PO BID Check with primary doctor 10/08/21 [History Last Taken Unknown] cephalexin 500 mg capsule 1 cap PO Q12H Check with primary doctor 10/08/21 [History Last Taken Unknown] diltiazem HCl 240 mg capsule,extended release 24 hr 1 cap PO DAILY Check with primary doctor 10/08/21 [History Last Taken Unknown] duloxetine 30 mg capsule,delayed release 1 cap PO DAILY Check with primary doctor 10/08/21 [History Last Taken Unknown] empagliflozin 25 mg tablet (Jardiance) 1 tab PO BREAKFAST Check with primary doctor 10/08/21 [History Last Taken Unknown] glimepiride 4 mg tablet 1 tab PO DAILY Check with primary doctor 10/08/21 [History Last Taken Unknown] hydromorphone 4 mg tablet 4 mg PO DAILY PRN Breakthrough Pain 10/08/21 [History Last Taken Unknown] insulin glargine 100 unit/mL subcutaneous cartridge 10 unit subcut QHS diabetic 10/08/21 [History Last Taken Unknown] levocetirizine 5 mg tablet 1 tab PO DINNER Check with primary doctor 10/08/21 [History Last Taken Unknown] levothyroxine 137 mcg tablet 1 tab PO DAILY Check with primary doctor 10/08/21 [History Last Taken Unknown] lisinopril 5 mg tablet 1 tab PO DAILY Check with primary doctor 10/08/21 [History Last Taken Unknown] loratadine 10 mg tablet 1 tab PO DAILY Check with primary doctor 10/08/21 [History Last Taken Unknown] metformin 500 mg tablet,extended release 24 hr 2 tab PO BID Check with primary doctor 10/08/21 [History Last Taken Unknown] metoprolol succinate 100 mg tablet,extended release 24 hr 100 tab PO DAILY Check with primary doctor 10/08/21 [History Last Taken Unknown] nortriptyline 25 mg capsule 25 cap PO QHS Check with primary doctor 10/08/21 [History Last Taken Unknown] oxymorphone 20 mg tablet,extended release,12 hr 1 tab PO Q12H PRN PRN Pain, Severe 10/08/21 [History Last Taken Unknown] pantoprazole 40 mg tablet,delayed release 1 tab PO DAILY Check with primary doctor 10/08/21 [History Last Taken Unknown] pioglitazone 30 mg tablet 1 tab PO DAILY Check with primary doctor 10/08/21 [History Last Taken Unknown] potassium chloride 10 mEq tablet,extended release 1 tab PO DAILY Check with primary doctor 10/08/21 [History Last Taken Unknown] pregabalin 75 mg capsule 1 cap PO TID Check with primary doctor 10/08/21 [History Last Taken Unknown] rosuvastatin 10 mg tablet 1 tab PO DAILY Check with primary doctor 10/08/21 [History Last Taken Unknown] topiramate 100 mg tablet (Topamax) 1 tab PO BID Check with primary doctor 10/08/21 [History Last Taken Unknown] triamterene 37.5 mg-hydrochlorothiazide 25 mg tablet 1 tab PO DAILY Check with primary doctor 10/08/21 [History Last Taken Unknown] Allergy/AdvReac Type Severity Reaction Status Date / Time adhesive tape Allergy Other Verified 10/07/21 19:41 Sulfa (Sulfonamide Allergy Hives Verified 10/07/21 19:41 Antibiotics) Social History Smoking Status: Former smoker substance use type: does not use ROS Review of Systems ROS Unobtainable: due to mental status Physical Exam Const Constitutional Narrative: RASS -2. Morbidly obese. General Appearance: well developed; Negative for cooperative or in distress HEENT normocephalic, head/scalp atraumatic, hearing grossly normal bilaterally and moist oral mucous membranes HEENT Narrative: Nasal cannula in place Eyes PERRL and EOMs intact bilaterally Eyes Narrative: Slight scleral injection noted Neck no lymphadenopathy Neck Narrative: no thyromegaly Chest inspection of chest normal Resp normal respiratory effort, no retractions, no use of accessory muscles and clear to auscultation bilaterally Auscultation: Negative for rales, rhonchi or wheezes Cardio regular rate, regular rhythm, S1 normal heart sound, S2 normal heart sound, no murmurs, no rub and no gallops GI normal to inspection, nondistended, normoactive bowel sounds and soft to palpation GI Narrative: Protuberant Extremity normal to inspection and full ROM Skin no rashes or lesions noted Neuro CN's II-XII intact bilaterally, moves all extremities and no focal motor deficits Neuro Narrative: No tremors Psych Mood & Affect: flat affect Medical Records Data Attestation: I reviewed the patient's medical records Lab / Micro Data Attestation: I reviewed the patient's lab results. Result Diagrams: 10/08/21 04:25 10/08/21 04:25 Labs: Laboratory Results - last 24 hr 10/07/21 20:00: WBC 15.2 H, RBC 4.66, Hgb 14.4, Hct 45.0, MCV 96.6 H, MCH 30.9, MCHC 32.0, RDW Std Deviation 49.5 H, RDW Coeff of Diane 13.9, Plt Count 335, MPV 10.3, Immature Gran % (Auto) 0.300, Neut % (Auto) 75.7 H, Lymph % (Auto) 17.0 L, [place] % (Auto) 6.0, Eos % (Auto) 0.7, Baso % (Auto) 0.3, Absolute Neuts (auto) 11.5 H, Absolute Lymphs (auto) 2.58, Nucleated RBC % 0 10/07/21 20:00: Sodium 135 L, Potassium 5.4 H, Chloride 102, Carbon Dioxide 21.0, Anion Gap 12, BUN 55 H, Creatinine 6.15 H, Estim Creat Clear Calc 12.98, Est GFR (MDRD) Af Amer 12 L, Est GFR (MDRD) Non-Af 10 L, BUN/Creatinine Ratio 8.9 L, Glucose 108 H, Calcium 9.4, Total Bilirubin 0.70, AST 135 H, ALT 48, Alkaline Phosphatase 113, Troponin I High Sens 7, Total Protein 8.3 H, Albumin 4.3, Globulin 4.0, Albumin/Globulin Ratio 1.1 10/07/21 20:00: Ethyl Alcohol 13.0 10/07/21 20:00: Total Creatine Kinase 5531 H 10/07/21 20:00: Ur Random Sodium 17, Urine Creatinine 369.00 10/07/21 20:10: Urine Color Yellow, Urine Clarity Clear, Urine pH 5.0, Ur Specific [place] 1.025, Urine Protein 30 H, Urine Glucose (UA) 250 H, Urine Ketones 5 H, Urine Occult Blood 10 H, Urine Nitrite Negative, Urine Bilirubin 1 H, Urine Urobilinogen 1 H, Ur Leukocyte Esterase 25 H, Urine RBC 0 SEEN, Urine WBC 0-5 SEEN, Ur Squamous Epith Cells 0-5 SEEN, Calcium Oxalate Crystal 1+, Urine Bacteria 0 SEEN, Hyaline Casts 10-25 SEEN, Urine Mucus 0 SEEN 10/07/21 20:10: Urine Opiates Screen POSITIVE H, Urine Methadone Screen NEGATIVE, Ur Barbiturates Screen NEGATIVE, Ur Phencyclidine Scrn NEGATIVE, Ur Amphetamines Screen NEGATIVE, MDMA (Ecstasy) Screen NEGATIVE, U Benzodiazepines Scrn NEGATIVE, Urine Cocaine Screen NEGATIVE, U Cannabinoids Screen NEGATIVE, Ur Drug Screen Comment 10/07/21 22:51: POC Glucose 63 L 10/08/21 00:33: POC Glucose 69 L 10/08/21 04:25: WBC 11.2 H, RBC 3.83 L, Hgb 12.0 L, Hct 38.1 L, MCV 99.5 H, MCH 31.3, MCHC 31.5 L, RDW Std Deviation 49.9 H, RDW Coeff of Diane 13.9, Plt Count 215, MPV 10.0, Immature Gran % (Auto) 0.300, Neut % (Auto) 78.2 H, Lymph % (Auto) 14.7 L, [place] % (Auto) 5.2, Eos % (Auto) 1.3, Baso % (Auto) 0.3, Absolute Neuts (auto) 8.7 H, Absolute Lymphs (auto) 1.64, Nucleated RBC % 0 10/08/21 04:25: Sodium 138, Potassium 4.7, Chloride 109 H, Carbon Dioxide 19.0 L, Anion Gap 10, BUN 51 H, Creatinine 5.13 H, Estim Creat Clear Calc 15.56, Est GFR (MDRD) Af Amer 15 L, Est GFR (MDRD) Non-Af 12 L, BUN/Creatinine Ratio 9.9 L, Glucose 127 H, Calcium 7.7 L, Total Creatine Kinase 3259 H 10/08/21 06:24: POC Glucose 119 H Micro: Microbiology 10/07/21 22:29 Nasal Secretion SARS-CoV-2 Antigen (Rapid) - Final Rhythm Strip Rhythm Strip: Sinus Rhythm Rate: [address] 10/07/21 20:06 IMPRESSION: Negative head/brain CT without intravenous contrast. Electronically Signed: Nikki Moss MD at 21:09 EDT , Chest X-Ray 10/07/21 20:35 IMPRESSION: Mild pulmonary hypoinflation. No radiographic evidence of acute cardiopulmonary disease. Electronically Signed: Nikki Moss MD at 21:15 EDT , Charges/Coding Visit Charges Inpatient E&M: 64263 Init Hosp L3 Multi Select Codes Hospitalists' Procedures Procedures: 27252 Critial Care 1st Hr
[2021-10-08 07:31] LABS: Allen Test Positive; Base Excess -9 mmol/L (-2 to +2); Bicarbonate 18.7 mmol/L (22-26); Blood Gas Specimen Type ART; O2 Delivery Device Cannula; PO2 80 mmHG (75-100); SITE R Brach; SO2 92 % (95-99); Total Carbon Dioxide 20 mmol/L; pCO2 48.1 mmHg (35-45)
[2021-10-08] MEDS: Sodium Bicarbonate 8.4% 50 ML Syringe 50 MEQ IV (07:48)
[2021-10-08] MEDS: Lactated Ringers 1,000 ML 200 ML IV ×4 (08:27→22:00)
[2021-10-08] MEDS: Heparin Injection (Vial) 5,000 UNIT/ML VIAL 5000 UNIT SC ×2 (08:35→22:28)
[2021-10-08 08:58] LABS: International Normalized Ratio 1.2; Partial Thromboplast Time 30.6 Seconds (24.1-36.2); Prothrombin Time (Protime)PT. 15.1 SECONDS (11.7-14.9)
[2021-10-08 10:40] LABS: Bedside Glucose 107 mg/dL (74-106)
--- NOTE | 2021-10-08 12:16 | RAD_ITS ---
STUDY: X-RAY CHEST REASON FOR EXAM: Male, 56 years old. central line placement TECHNIQUE: 1 view COMPARISON: 10/07/2021 FINDINGS: Right IJ catheter tip ends in the distal SVC. No pneumothorax. Cardiomegaly with mild pulmonary vascular congestion. Lungs grossly clear. No sizable pleural effusion. Electronically Signed: Praveen Angel MD at 13:52 EDT , RAD/Chest 1 View (Portable) IMPRESSION: undefined
--- NOTE | 2021-10-08 12:39 | PCM.OP.BLANK ---
Operative Report Date of Procedure: 10/08/21 Central line placement procedure note Indication: IV access/hemodynamic instability/vasoactive medications Procedure: A time-out was completed to verify correct patient, indication, medication allergies, procedure, coagulation studies, informed consent signed, and equipment needed. The patient was placed in the supine position for a central line placement to the rt IJ vein. The patients rt neck was prepped using chlorhexidine and a full body sterile drape was applied. 1% lidocaine was used to anesthetize the surrounding skin. A 7fr 16 cm blue guard triple lumen catheter introduced into the internal jugular vein using the modified Seldinger technique with the assistance of ultrasound. The catheter was threaded smoothly over the guidewire, the guidewire was removed easily, nonpulsatile blood returned. All ports were aspirated of air and flushed with sterile saline. The catheter was sutured in place and covered with an occlusive dressing impregnated with chlorhexidine. Post-procedure: The patient tolerated the procedure well. Vital signs remained stable. EBL 3 cc. No complications. Chest X Ray ordered to confirm tip placement and the absence of pneumothorax. Procedures Hospitalists Procedures: 93185 Insert Non-tunnel CV Cath
--- NOTE | 2021-10-08 13:17 | CASEMGMT ---
RN [employer] SALES CONSULTANT CM placed call to dtr, Chrissy, for initial transition planning/care coordination assessment d/t pt confusion and sedation. BENJAMIN HAMILTON introduced self and role at [facility].? Dtr voices understanding and consents to assessment at this time.?Care providers, pharmacy, and demographics verified/updated at this time. PCP: Dr Mayo Mead Specialists: Chrissy states pt sees a alteration specialist and pain mgmt doctor in the [place] areas, but she is not sure what the doctor's names are. Preferred Pharmacy: [facility] in [place] Insurance: [place] MCR Prescription Benefit:?Yes Living Will/HPOA:? Chrissy states does not think pt has completed a LW, but she thinks he has done a HPOA and that she thinks she and her sister, Maryan, are POA's. She does not have a copy of it and does not know where to find it. She was made aware, unless pt would have designated someone else to be his POA, that she and Maryan would be the decision makers for pt for healthcare until he is able to make his own medical decisions. LNOK: Dtr's Chrissy and Maryan Living Arrangements: Lives w/Chrissy and Maryan in 2-story home w/3-4 steps to enter through front entrance. FFSU. Independent w/ADL's and manages his own medications and appts. Dtr's do home mgmt tasks d/t pt has chronic pain issues from complex regional pain syndrome. Transportation:?Pt drives. Dtr's can assist if needed. DME: ?Pt has a glucometer. Chrissy states he only checks his BS's on rare occasion. He has a cane he uses on rare occasion if he is really sore. Pt had tried wearing a PAP in the past, but Chrissy states, The settings were too high and it was hurting his lungs and he could not tolerate it. She states he did inquire w/the doctor if the settings could be lowered/adjusted and was told he would not lower it, so pt stopped wearing it. HHC/SNF: No hx of either. Dtr states pt does not smoke or drink ETOH.? She stated, He knows better than to drink with the opioids he takes. She states he does chew tobacco. Dtr voices no concerns/needs at this time.? Advised her to ask for CM if any further questions/concerns/needs arise.? She voices understanding. CM to follow for discharge planning/needs.? PLAN:??TBD by course of treatment and progress w/therapy. Felix BSN RN CM
--- NOTE | 2021-10-08 15:56 | PCM.CONS.R ---
Assessment & Plan Assessment/Plan (1) HEBERT (acute kidney injury): PLAN: Renal function is presumably normal at baseline. Acute kidney injury is likely due to prerenal azotemia and that may have progressed to ischemic ATN from lack of oral intake in the setting of continued use of ARIAN inhibitor. Renal function has improved in the last 12 hours with volume expansion. Agree with stopping lisinopril for now. I will check urine indices. Since renal function is already improving with improving urine output, I will hold off on further work-up. If renal function fails to improve further in the next 24 hours, we will check renal ultrasound. Agree with IV fluid using LR. Agree with keeping MAP above 65 mmHg with use of IV fluid and IV vasopressors as needed. There is no need for kidney replacement therapy as the patient does not appear to be volume overloaded, hyperkalemic or terribly acidotic. We will continue to monitor for any further improvement of renal function. Current medications are reviewed and are appropriately dosed for his renal function. (2) Metabolic acidosis: PLAN: Metabolic acidosis is secondary to HEBERT. Serum bicarbonate level has improved to 19 mmol/L today. Agree with switching from normal saline to LR for maintenance IV fluid. There is no need for additional sodium bicarbonate supplementation since bicarbonate level is improving. Will continue to monitor serum bicarbonate level. (3) Hyperkalemia: PLAN: The patient presented initially with mild hyperkalemia. Hyperkalemia was likely due to HEBERT along with concurrent use of ARIAN inhibitor. Potassium level has improved with improvement in renal function and volume expansion. Agree with stopping lisinopril for now. We will continue to monitor potassium levels. (4) Hypotension: PLAN: Suspect the patient has hypovolemic shock. BP is improving. Agree with volume expansion and IV vasopressor as needed. Coordination of complex medical care as per hospitalist and residential sales consultant. (5) Rhabdomyolysis: PLAN: The patient presented with mild rhabdomyolysis with CK level 5531. This degree of rhabdomyolysis should not contribute to HEBERT. Treatment is to continue to volume expand the patient and trend CK. HPI Consult Data Date of Consult: 10/09/21 HPI Narrative Reason for Consultation: HEBERT HPI Narrative: FRANSISCO RODRIGUEZ, is a 56-year-old man with past history of type 2 diabetes mellitus, hypertension, reflex sympathetic dystrophy syndrome with chronic pain, LILLY, and gout. The patient presented to the hospital on 10/07/2021 with 2 to 3-day of increasing somnolence and confusion. He was found to be hypotensive on evaluation. The patient also had HEBERT with serum creatinine of 6.15 mg/dL on presentation. Nephrology is asked to see the patient because of HEBERT. Unfortunately, there is no prior available serum creatinine on our system for comparison. Serum creatinine did improve overnight and came down to 5.13 mg/dL this morning. The patient remains somnolent but is able to awaken with voice. However, the patient would fall asleep quickly after a few sentences and has to be constantly awaken back. He denies prior history of CKD. He denies chest pain, shortness of breath, nausea, or dizziness. The patient has diffuse pain of his lower extremities, but there has been no increasing edema. Per his daughter, who is bedside, the patient has been taking all of his medication including lisinopril up until the day of presentation. [facility] Medical History Complex regional pain syndrome Diabetes Hypertension Sleep apnea Tachycardia Home Medications allopurinol 100 mg tablet 100 tab PO BID Check with primary doctor 10/08/21 [History Last Taken Unknown] baclofen 10 mg tablet 1 tab PO BID Check with primary doctor 10/08/21 [History Last Taken Unknown] cephalexin 500 mg capsule 1 cap PO Q12H Check with primary doctor 10/08/21 [History Last Taken Unknown] diltiazem HCl 240 mg capsule,extended release 24 hr 1 cap PO DAILY Check with primary doctor 10/08/21 [History Last Taken Unknown] duloxetine 30 mg capsule,delayed release 1 cap PO DAILY Check with primary doctor 10/08/21 [History Last Taken Unknown] empagliflozin 25 mg tablet (Jardiance) 1 tab PO BREAKFAST Check with primary doctor 10/08/21 [History Last Taken Unknown] glimepiride 4 mg tablet 1 tab PO DAILY Check with primary doctor 10/08/21 [History Last Taken Unknown] hydromorphone 4 mg tablet 4 mg PO DAILY PRN Breakthrough Pain 10/08/21 [History Last Taken Unknown] insulin glargine 100 unit/mL subcutaneous cartridge 10 unit subcut QHS diabetic 10/08/21 [History Last Taken Unknown] levocetirizine 5 mg tablet 1 tab PO DINNER Check with primary doctor 10/08/21 [History Last Taken Unknown] levothyroxine 137 mcg tablet 1 tab PO DAILY Check with primary doctor 10/08/21 [History Last Taken Unknown] lisinopril 5 mg tablet 1 tab PO DAILY Check with primary doctor 10/08/21 [History Last Taken Unknown] loratadine 10 mg tablet 1 tab PO DAILY Check with primary doctor 10/08/21 [History Last Taken Unknown] metformin 500 mg tablet,extended release 24 hr 2 tab PO BID Check with primary doctor 10/08/21 [History Last Taken Unknown] metoprolol succinate 100 mg tablet,extended release 24 hr 100 tab PO DAILY Check with primary doctor 10/08/21 [History Last Taken Unknown] nortriptyline 25 mg capsule 25 cap PO QHS Check with primary doctor 10/08/21 [History Last Taken Unknown] oxymorphone 20 mg tablet,extended release,12 hr 1 tab PO Q12H PRN PRN Pain, Severe 10/08/21 [History Last Taken Unknown] pantoprazole 40 mg tablet,delayed release 1 tab PO DAILY Check with primary doctor 10/08/21 [History Last Taken Unknown] pioglitazone 30 mg tablet 1 tab PO DAILY Check with primary doctor 10/08/21 [History Last Taken Unknown] potassium chloride 10 mEq tablet,extended release 1 tab PO DAILY Check with primary doctor 10/08/21 [History Last Taken Unknown] pregabalin 75 mg capsule 1 cap PO TID Check with primary doctor 10/08/21 [History Last Taken Unknown] rosuvastatin 10 mg tablet 1 tab PO DAILY Check with primary doctor 10/08/21 [History Last Taken Unknown] topiramate 100 mg tablet (Topamax) 1 tab PO BID Check with primary doctor 10/08/21 [History Last Taken Unknown] triamterene 37.5 mg-hydrochlorothiazide 25 mg tablet 1 tab PO DAILY Check with primary doctor 10/08/21 [History Last Taken Unknown] Allergy/AdvReac Type Severity Reaction Status Date / Time adhesive tape Allergy Other Verified 10/07/21 19:41 Sulfa (Sulfonamide Allergy Hives Verified 10/07/21 19:41 Antibiotics) Social History Smoking Status: Former smoker substance use type: does not use ROS ROS Narrative ROS was not able to be obtained since the patient falls asleep quickly after a few sentences. Physical Exam Narrative General: Somnolent but can be awakened with voice. However, the patient does not maintain attention and falls asleep easily. HEENT: Atraumatic normocephalic. Pupil equal round and reactive to light and accommodation. Extraocular motion is intact. Mucous membrane is dry without erythema. Hearing is intact. Neck: Supple, no JVD. Heart: Normal S1, S2. No rubs, murmurs or gallops. Lungs: Clear to auscultation anteriorly. Abdomen: Normal bowel sound, soft, nontender, no guarding or rebound. Extremities: No edema. There is no clubbing or cyanosis. Extremities are tender to light touch. Neurologic: No focal neurologic deficits. Psychiatric: Flat affect. Difficulty in maintaining attention during exam. Skin: No rash. Skin is warm and dry. Lab / Micro Data Result Diagrams: 10/09/21 04:45 10/09/21 04:45 Labs: Laboratory Results - last 24 hr 10/07/21 20:00: WBC 15.2 H, RBC 4.66, Hgb 14.4, Hct 45.0, MCV 96.6 H, MCH 30.9, MCHC 32.0, RDW Std Deviation 49.5 H, RDW Coeff of Diane 13.9, Plt Count 335, MPV 10.3, Immature Gran % (Auto) 0.300, Neut % (Auto) 75.7 H, Lymph % (Auto) 17.0 L, Gregory % (Auto) 6.0, Eos % (Auto) 0.7, Baso % (Auto) 0.3, Absolute Neuts (auto) 11.5 H, Absolute Lymphs (auto) 2.58, Nucleated RBC % 0 10/07/21 20:00: Sodium 135 L, Potassium 5.4 H, Chloride 102, Carbon Dioxide 21.0, Anion Gap 12, BUN 55 H, Creatinine 6.15 H, Estim Creat Clear Calc 12.98, Est GFR (MDRD) Af Amer 12 L, Est GFR (MDRD) Non-Af 10 L, BUN/Creatinine Ratio 8.9 L, Glucose 108 H, Calcium 9.4, Total Bilirubin 0.70, AST 135 H, ALT 48, Alkaline Phosphatase 113, Troponin I High Sens 7, Total Protein 8.3 H, Albumin 4.3, Globulin 4.0, Albumin/Globulin Ratio 1.1 10/07/21 20:00: Ethyl Alcohol 13.0 10/07/21 20:00: Total Creatine Kinase 5531 H 10/07/21 20:00: Ur Random Sodium 17, Urine Creatinine 369.00 10/07/21 20:10: Urine Color Yellow, Urine Clarity Clear, Urine pH 5.0, Ur Specific [place] 1.025, Urine Protein 30 H, Urine Glucose (UA) 250 H, Urine Ketones 5 H, Urine Occult Blood 10 H, Urine Nitrite Negative, Urine Bilirubin 1 H, Urine Urobilinogen 1 H, Ur Leukocyte Esterase 25 H, Urine RBC 0 SEEN, Urine WBC 0-5 SEEN, Ur Squamous Epith Cells 0-5 SEEN, Calcium Oxalate Crystal 1+, Urine Bacteria 0 SEEN, Hyaline Casts 10-25 SEEN, Urine Mucus 0 SEEN 10/07/21 20:10: Urine Opiates Screen POSITIVE H, Urine Methadone Screen NEGATIVE, Ur Barbiturates Screen NEGATIVE, Ur Phencyclidine Scrn NEGATIVE, Ur Amphetamines Screen NEGATIVE, MDMA (Ecstasy) Screen NEGATIVE, U Benzodiazepines Scrn NEGATIVE, Urine Cocaine Screen NEGATIVE, U Cannabinoids Screen NEGATIVE, Ur Drug Screen Comment 10/07/21 22:51: POC Glucose 63 L 10/08/21 00:33: POC Glucose 69 L 10/08/21 04:25: WBC 11.2 H, RBC 3.83 L, Hgb 12.0 L, Hct 38.1 L, MCV 99.5 H, MCH 31.3, MCHC 31.5 L, RDW Std Deviation 49.9 H, RDW Coeff of Diane 13.9, Plt Count 215, MPV 10.0, Immature Gran % (Auto) 0.300, Neut % (Auto) 78.2 H, Lymph % (Auto) 14.7 L, Gregory % (Auto) 5.2, Eos % (Auto) 1.3, Baso % (Auto) 0.3, Absolute Neuts (auto) 8.7 H, Absolute Lymphs (auto) 1.64, Nucleated RBC % 0 10/08/21 04:25: Sodium 138, Potassium 4.7, Chloride 109 H, Carbon Dioxide 19.0 L, Anion Gap 10, BUN 51 H, Creatinine 5.13 H, Estim Creat Clear Calc 15.56, Est GFR (MDRD) Af Amer 15 L, Est GFR (MDRD) Non-Af 12 L, BUN/Creatinine Ratio 9.9 L, Glucose 127 H, Calcium 7.7 L, Total Creatine Kinase 3259 H 10/08/21 06:24: POC Glucose 119 H 10/08/21 08:45: PT 15.1 H, INR 1.2, APTT 30.6 10/08/21 10:36: POC Glucose 107 H Micro: Microbiology 10/07/21 22:29 Nasal Secretion SARS-CoV-2 Antigen (Rapid) - Final ABG Data ABG results: ABG 10/08/21 07:23 Specimen Type ART Sample Site R Brach pH 7.20 L Bicarbonate Actual 18.7 L Total CO2 20 Base Excess -9 L O2 Saturation 92 L ABG pCO2 48.1 H ABG pO2 80 Howard Test Positive O2 Delivery Device Cannula Liter Flow 2.0 Crit Call To/Read Back Yes Blood Gas Notified Whom Rhythm Strip Rhythm Strip: Sinus Rhythm Rate: [address] 10/07/21 20:06 IMPRESSION: Negative head/brain CT without intravenous contrast. Electronically Signed: Nikki Moss MD at 21:09 EDT , Chest X-Ray 10/07/21 20:35 IMPRESSION: Mild pulmonary hypoinflation. No radiographic evidence of acute cardiopulmonary disease. Electronically Signed: Nikki Moss MD at 21:15 EDT , Chest X-Ray 10/08/21 12:16 IMPRESSION: undefined
[2021-10-08 17:05] LABS: Bedside Glucose 104 mg/dL (74-106)
--- NOTE | 2021-10-08 17:24 | PCM.PN.HOSP ---
Subjective Subjective Patient was seen and examined today in the ICU, he is currently under light sedation, I was able to wake him up and asked him a few questions. Patient denied to me that he is using narcotics at home for pain, he says he is taking gabapentin. Patient was seen in consultation by nephrology today and critical care. Objective Data Objective Data Vital Signs: Vital Signs Temp Pulse Resp BP Pulse Ox 99.1 F 76 18 119/72 95 10/08/21 17:00 10/08/21 17:00 10/08/21 17:00 10/08/21 17:00 10/08/21 17:00 Oxygen Flow Rate (L/min) 2 Oxygen Delivery Method Nasal Cannula Weight: 118 kg Body Mass Index (BMI) 38.9 Intake & Output: Intake and Output for Last 24 Hours 10/06/21 10/07/21 10/08/21 23:59 23:59 23:59 Intake Total 2120 / 2313.33 4618.06 / 4618.06 Output Total 400 / 400 Balance 2120 / 2313.33 4218.06 / 4218.06 Lab / Micro Data Result Diagrams: 10/08/21 04:25 10/08/21 04:25 Labs: Laboratory Results - last 24 hr 10/07/21 20:00: WBC 15.2 H, RBC 4.66, Hgb 14.4, Hct 45.0, MCV 96.6 H, MCH 30.9, MCHC 32.0, RDW Std Deviation 49.5 H, RDW Coeff of Diane 13.9, Plt Count 335, MPV 10.3, Immature Gran % (Auto) 0.300, Neut % (Auto) 75.7 H, Lymph % (Auto) 17.0 L, Walton % (Auto) 6.0, Eos % (Auto) 0.7, Baso % (Auto) 0.3, Absolute Neuts (auto) 11.5 H, Absolute Lymphs (auto) 2.58, Nucleated RBC % 0 10/07/21 20:00: Sodium 135 L, Potassium 5.4 H, Chloride 102, Carbon Dioxide 21.0, Anion Gap 12, BUN 55 H, Creatinine 6.15 H, Estim Creat Clear Calc 12.98, Est GFR (MDRD) Af Amer 12 L, Est GFR (MDRD) Non-Af 10 L, BUN/Creatinine Ratio 8.9 L, Glucose 108 H, Calcium 9.4, Total Bilirubin 0.70, AST 135 H, ALT 48, Alkaline Phosphatase 113, Troponin I High Sens 7, Total Protein 8.3 H, Albumin 4.3, Globulin 4.0, Albumin/Globulin Ratio 1.1 10/07/21 20:00: Ethyl Alcohol 13.0 10/07/21 20:00: Total Creatine Kinase 5531 H 10/07/21 20:00: Ur Random Sodium 17, Urine Creatinine 369.00 10/07/21 20:10: Urine Color Yellow, Urine Clarity Clear, Urine pH 5.0, Ur Specific [place] 1.025, Urine Protein 30 H, Urine Glucose (UA) 250 H, Urine Ketones 5 H, Urine Occult Blood 10 H, Urine Nitrite Negative, Urine Bilirubin 1 H, Urine Urobilinogen 1 H, Ur Leukocyte Esterase 25 H, Urine RBC 0 SEEN, Urine WBC 0-5 SEEN, Ur Squamous Epith Cells 0-5 SEEN, Calcium Oxalate Crystal 1+, Urine Bacteria 0 SEEN, Hyaline Casts 10-25 SEEN, Urine Mucus 0 SEEN 10/07/21 20:10: Urine Opiates Screen POSITIVE H, Urine Methadone Screen NEGATIVE, Ur Barbiturates Screen NEGATIVE, Ur Phencyclidine Scrn NEGATIVE, Ur Amphetamines Screen NEGATIVE, MDMA (Ecstasy) Screen NEGATIVE, U Benzodiazepines Scrn NEGATIVE, Urine Cocaine Screen NEGATIVE, U Cannabinoids Screen NEGATIVE, Ur Drug Screen Comment 10/07/21 22:51: POC Glucose 63 L 10/08/21 00:33: POC Glucose 69 L 10/08/21 04:25: WBC 11.2 H, RBC 3.83 L, Hgb 12.0 L, Hct 38.1 L, MCV 99.5 H, MCH 31.3, MCHC 31.5 L, RDW Std Deviation 49.9 H, RDW Coeff of Diane 13.9, Plt Count 215, MPV 10.0, Immature Gran % (Auto) 0.300, Neut % (Auto) 78.2 H, Lymph % (Auto) 14.7 L, Walton % (Auto) 5.2, Eos % (Auto) 1.3, Baso % (Auto) 0.3, Absolute Neuts (auto) 8.7 H, Absolute Lymphs (auto) 1.64, Nucleated RBC % 0 10/08/21 04:25: Sodium 138, Potassium 4.7, Chloride 109 H, Carbon Dioxide 19.0 L, Anion Gap 10, BUN 51 H, Creatinine 5.13 H, Estim Creat Clear Calc 15.56, Est GFR (MDRD) Af Amer 15 L, Est GFR (MDRD) Non-Af 12 L, BUN/Creatinine Ratio 9.9 L, Glucose 127 H, Calcium 7.7 L, Total Creatine Kinase 3259 H 10/08/21 06:24: POC Glucose 119 H 10/08/21 08:45: PT 15.1 H, INR 1.2, APTT 30.6 10/08/21 10:36: POC Glucose 107 H 10/08/21 16:50: POC Glucose 104 Micro: Microbiology 10/07/21 22:29 Nasal Secretion SARS-CoV-2 Antigen (Rapid) - Final ABG Data ABG results: ABG 10/08/21 07:23 Specimen Type ART Sample Site R Brach pH 7.20 L Bicarbonate Actual 18.7 L Total CO2 20 Base Excess -9 L O2 Saturation 92 L ABG pCO2 48.1 H ABG pO2 80 Howard Test Positive O2 Delivery Device Cannula Liter Flow 2.0 Crit Call To/Read Back Yes Blood Gas Notified Whom Radiography Diagnostic Testing: Radiology Impression Brain CT 10/07/21 20:06 IMPRESSION: Negative head/brain CT without intravenous contrast. Electronically Signed: Nikki Moss MD at 21:09 EDT Reading Location ID and State: [facility] / [place] Tel , Service support , Chest X-Ray 10/07/21 20:35 IMPRESSION: Mild pulmonary hypoinflation. No radiographic evidence of acute cardiopulmonary disease. Electronically Signed: Nikki Moss MD at 21:15 EDT , Chest X-Ray 10/08/21 12:16 IMPRESSION: undefined Rhythm Strip Rhythm Strip: Sinus Rhythm Rate: 81 Physical Exam Const Constitutional Narrative: Patient is under light sedation, he awakens to answer simple questions. HEENT head/scalp atraumatic, moist oral mucous membranes and oropharynx normal Eyes conjunctivae normal Neck no JVD and no carotid bruits Resp normal respiratory effort, no retractions, no use of accessory muscles and clear to auscultation bilaterally Cardio regular rate, regular rhythm, S1 normal heart sound, S2 normal heart sound and no murmurs GI normal to inspection, nondistended, normoactive bowel sounds, soft to palpation and non-tender Extremity no clubbing, cyanosis or edema Neuro CN's II-XII intact bilaterally Neuro Narrative: Patient is under light sedation at this time Psych Psych Narrative: Patient is under light sedation at this time Assessment & Plan Assessment/Plan (1) Toxic encephalopathy: PLAN: Plan 1. Encephalopathy-exact etiology unclear at this point, etiology could be toxic encephalopathy, patient is on multiple medications including pain medications. Patient will continue to be observed in the ICU, he is currently on Precedex #2 acute renal failure-etiology unclear, nephrology saw the patient today and feels it may be due to volume, patient will be given IV fluids, labs will be monitored #3 complex regional pain syndrome-complicates management, recovery, and prognosis. #4 hypoxia-patient is currently on 2 L via nasal cannula, pulse ox will be monitored #5 hyperkalemia-resolved at this time, labs will be monitored Charges/Coding Visit Charges Inpatient E&M: 08709 Subs Hosp L2
[2021-10-08 22:35] LABS: Bedside Glucose 95 mg/dL (74-106)
[2021-10-09] VITALS (18 sets, daily range): BP systolic 105–163; BP diastolic 62–83; PULSE 83–95; RESP 18–24; TEMP 36.3–37.8; O2SAT 94–100
[2021-10-09] MEDS: Lactated Ringers 1,000 ML 200 ML IV (03:00)
[2021-10-09 05:51] LABS: Absolute Lymphocyte Count 1.38 X10^3/uL (0.83-4.51); Absolute Neutrophil Count 5.1 X10^3/uL (2.0-7.7); Basophil# 0.04 X10^3/uL; Basophil% 0.6 % (0-1); Eosinophil# 0.21 X10^3/uL; Hematocrit 37.4 % (40-54); Hemoglobin 12.2 g/dL (13.0-16.5); Lymphocyte # 1.38 X10^3/ul (0.83-4.51); Lymphocyte % 19.4 % (19-41); Mean Corp Hgb Conc 32.6 g/dL (32-36); Mean Corpuscular Hgb 31.9 pg (27.0-32.0); Mean Corpuscular Volume 97.7 fL (80-94); Mean Platelet Vol. 10.2 fl (6.2-12.0); Monocyte# 0.35 X10^3/uL; Monocyte% 4.9 % (0-10); NRBC Flagged by Analyzer 0 % (0-5); Neutrophil % 71.8 % (47-70); Platelet Count 200 K/mm3 (150-450); RBC Distribution Width CV 13.5 % (11.6-14.6); Red Blood Count 3.83 M/mm3 (4.6-6.2); White Blood Count 7.1 K/mm3 (4.4-11.0)
[2021-10-09 06:46] LABS: Anion Gap 9 (5-15); BUN 32 mg/dL (7-18); BUN/Creat Ratio 18.2 RATIO (10-20); CPK Total, Creatine Kinase 1098 U/L (39-308); Calcium,Total 8.6 mg/dL (8.5-10.1); Chloride 109 mmol/L (98-107); Creatinine, Serum 1.76 mg/dL (0.70-1.30); EST Glomerular Filtration Rate 43 mL/min (>60); Est Glom Filt Rate - Afr Amer 52 mL/min (>60); Estimated Creatinine Clearance 45.34 ml/min; Glucose 80 mg/dL (74-106); Magnesium 2.1 mg/dL (1.6-2.6); Phosphorus 2.9 mg/dL (2.5-4.9); Potassium 4.9 mmol/L (3.5-5.1); Sodium Level 140 mmol/L (136-145)
--- NOTE | 2021-10-09 06:57 | PCM.PN.INT ---
Assessment & Plan Assessment/Plan (1) Toxic encephalopathy: (2) HEBERT (acute kidney injury): (3) Complex regional pain syndrome: (4) Rhabdomyolysis: PLAN: Plan RECOMMENDATIONS: 1. Decrease IV fluid rate 2. Bedside swallow evaluation and initiate diet 3. Okay to transfer out of the intensive care unit 4. Hemodynamically stable on room air. Will sign off from a critical care/pulmonary perspective 5. Wean oxygen as tolerated 6. Consider reinitiation of baseline chronic pain medications in a stepwise fashion IMPRESSIONS: 1. Acute kidney injury of unclear etiology Patient does have elevated CPK, but this does not appear to be at a level that would suggest this amount of renal dysfunction. It is possible that this is trending downward. Patient does have hyaline casts on original UA. Patient appears to have entered the polyuric phase of ATN. Unclear if an element of the increased urine output is secondary to IV fluids. Will decrease IV fluids to 50 cc/h and monitor output. Appreciate renal input 2. Toxic encephalopathy Resolved. Patient does take many medications that could be affected by problem #1. All of these have been placed on hold. We will continue to monitor mental status. Patient much more appropriate at this time. Likely okay to reinitiate baseline medications in a stepwise fashion. 3. Mild hypoxic respiratory insufficiency Resolved. Patient is relatively sedated at this time. Patient may have an element of pulmonary hypertension given failure to comply with BiPAP therapy. We will continue to wean supplemental oxygen as tolerated. Attempt to keep saturations between 90 and 94%. Patient does not have an elevated bicarbonate to suggest chronic CO2 retention, but does have a tobacco history. Outpatient pulmonary function test would be helpful for quantification clarification of lung function. 4. Complex regional pain syndrome/morbid obesity/poor history Complicates care, management, recovery and prognosis. Patient has been started on a Lidoderm patch. Opiate withdrawal is a concern and will need to be monitored. Subjective Subjective Patient with significant improvements over the last 24 hours. Patient was able to be taken off of Levophed and Precedex overnight. Patient's blood pressures have been doing well. Patient has had significant urine output. Patient is not reporting any pain at this time. Objective Data Objective Data Vital Signs: Vital Signs Temp Pulse Resp BP Pulse Ox 37.7 C H 94 24 H 116/68 98 10/09/21 05:00 10/09/21 05:00 10/09/21 05:00 10/09/21 05:00 10/09/21 05:00 Oxygen Flow Rate (L/min) 2 Oxygen Delivery Method Room Air Weight: 118.9 kg Body Mass Index (BMI) 38.9 Intake & Output: Intake and Output for Last 24 Hours 10/07/21 10/08/21 10/09/21 23:59 23:59 23:59 Intake Total 2120 / 2313.33 5939.21 / 5945.11 1031.00 / 1031.00 Output Total 4450 / 4450 1500 / 1500 Balance 2120 / 2313.33 1489.21 / 1495.11 -469.00 / -469.00 Lab / Micro Data Attestation: I reviewed the patient's lab results. Result Diagrams: 10/09/21 04:45 10/09/21 04:45 Labs: Laboratory Results - last 24 hr 10/08/21 08:45: PT 15.1 H, INR 1.2, APTT 30.6 10/08/21 10:36: POC Glucose 107 H 10/08/21 16:50: POC Glucose 104 10/08/21 22:26: POC Glucose 95 10/09/21 04:45: WBC 7.1, RBC 3.83 L, Hgb 12.2 L, Hct 37.4 L, MCV 97.7 H, MCH 31.9, MCHC 32.6, RDW Std Deviation 48.0 H, RDW Coeff of Diane 13.5, Plt Count 200, MPV 10.2, Immature Gran % (Auto) 0.300, Neut % (Auto) 71.8 H, Lymph % (Auto) 19.4, [place] % (Auto) 4.9, Eos % (Auto) 3.0, Baso % (Auto) 0.6, Absolute Neuts (auto) 5.1, Absolute Lymphs (auto) 1.38, Nucleated RBC % 0 10/09/21 04:45: Sodium 140, Potassium 4.9, Chloride 109 H, Carbon Dioxide 22.0, Anion Gap 9, BUN 32 H, Creatinine 1.76 H, Estim Creat Clear Calc 45.34, Est GFR (MDRD) Af Amer 52 L, Est GFR (MDRD) Non-Af 43 L, BUN/Creatinine Ratio 18.2, Glucose 80, Calcium 8.6, Phosphorus 2.9, Magnesium 2.1, Total Creatine Kinase 1098 H Micro: Microbiology 10/07/21 22:29 Nasal Secretion SARS-CoV-2 Antigen (Rapid) - Final ABG Data ABG results: ABG 10/08/21 07:23 Specimen Type ART Sample Site R Brach pH 7.20 L Bicarbonate Actual 18.7 L Total CO2 20 Base Excess -9 L O2 Saturation 92 L ABG pCO2 48.1 H ABG pO2 80 Howard Test Positive O2 Delivery Device Cannula Liter Flow 2.0 Crit Call To/Read Back Yes Blood Gas Notified Whom Radiography Diagnostic Testing: Radiology Impression Chest X-Ray 10/08/21 12:16 IMPRESSION: undefined Rhythm Strip Rhythm Strip: Sinus Rhythm Rate: 87 Physical Exam Const alert, oriented x3 and no apparent distress Constitutional Narrative: RASS 0. Morbidly obese. General Appearance: well developed; Negative for in distress HEENT normocephalic, head/scalp atraumatic, hearing grossly normal bilaterally and moist oral mucous membranes Eyes PERRL, EOMs intact bilaterally, conjunctivae normal and no scleral icterus Neck no lymphadenopathy Neck Narrative: no thyromegaly Chest inspection of chest normal Resp normal respiratory effort, no retractions, no use of accessory muscles and clear to auscultation bilaterally Auscultation: Negative for rales, rhonchi or wheezes Cardio regular rate, regular rhythm, S1 normal heart sound, S2 normal heart sound, no murmurs, no rub and no gallops GI normal to inspection, nondistended, normoactive bowel sounds and soft to palpation GI Narrative: Protuberant Extremity normal to inspection and full ROM Extremity Narrative: Slight generalized nonpitting edema Skin no rashes or lesions noted Neuro CN's II-XII intact bilaterally, moves all extremities and no focal motor deficits Neuro Narrative: No tremors Psych cooperative and affect normal Mood & Affect: flat affect Charges/Coding Visit Charges Inpatient E&M: 54136 Subs Hosp L3
[2021-10-09] MEDS: Lactated Ringers 1,000 ML 50 ML IV (07:53)
[2021-10-09 07:56] LABS: Bedside Glucose 76 mg/dL (74-106)
[2021-10-09] MEDS: Topiramate 100 MG Tablet PO ×2 (10:41→21:14)
[2021-10-09] MEDS: Pioglitazone Hydrochloride 30 MG Tablet PO (10:41)
[2021-10-09] MEDS: Lisinopril 5 MG Tablet PO (10:41)
[2021-10-09] MEDS: Heparin Injection (Vial) 5,000 UNIT/ML VIAL 5000 UNIT SC ×2 (10:41→21:13)
[2021-10-09] MEDS: Pantoprazole Sodium 40 MG Tablet PO (10:42)
[2021-10-09] MEDS: DULoxetine Hcl 30 MG Capsule PO (10:42)
[2021-10-09 10:55] LABS: Bedside Glucose 91 mg/dL (74-106)
--- NOTE | 2021-10-09 11:57 | PN.HOSP_ITS ---
Subjective Subjective Patient was seen and examined today, he appears more alert than yesterday, his creatinine and BUN have improved, I talked briefly with critical care about his medical care. Patient will be transferred to PCU for further care, he will need to be seen by PT and OT. Objective Data Objective Data Vital Signs: Vital Signs Temp Pulse Resp BP Pulse Ox 99.2 F H 92 19 H 132/69 H 96 10/09/21 10:00 10/09/21 11:10 10/09/21 10:00 10/09/21 10:00 10/09/21 10:00 Oxygen Flow Rate (L/min) 2 Oxygen Delivery Method Room Air Weight: 118.9 kg Body Mass Index (BMI) 38.9 Intake & Output: Intake and Output for Last 24 Hours 10/07/21 10/08/21 10/09/21 23:59 23:59 23:59 Intake Total 2120 / 2313.33 5939.21 / 5945.11 2327.67 / 2327.67 Output Total 4450 / 4450 2450 / 2450 Balance 2120 / 2313.33 1489.21 / 1495.11 -122.33 / -122.33 Lab / Micro Data Result Diagrams: 10/09/21 04:45 10/09/21 04:45 Labs: Laboratory Results - last 24 hr 10/08/21 16:50: POC Glucose 104 10/08/21 22:26: POC Glucose 95 10/09/21 04:45: WBC 7.1, RBC 3.83 L, Hgb 12.2 L, Hct 37.4 L, MCV 97.7 H, MCH 31.9, MCHC 32.6, RDW Std Deviation 48.0 H, RDW Coeff of Diane 13.5, Plt Count 200, MPV 10.2, Immature Gran % (Auto) 0.300, Neut % (Auto) 71.8 H, Lymph % (Auto) 19.4, [place] % (Auto) 4.9, Eos % (Auto) 3.0, Baso % (Auto) 0.6, Absolute Neuts (auto) 5.1, Absolute Lymphs (auto) 1.38, Nucleated RBC % 0 10/09/21 04:45: Sodium 140, Potassium 4.9, Chloride 109 H, Carbon Dioxide 22.0, Anion Gap 9, BUN 32 H, Creatinine 1.76 H, Estim Creat Clear Calc 45.34, Est GFR (MDRD) Af Amer 52 L, Est GFR (MDRD) Non-Af 43 L, BUN/Creatinine Ratio 18.2, Glucose 80, Calcium 8.6, Phosphorus 2.9, Magnesium 2.1, Total Creatine Kinase 1098 H 10/09/21 07:49: POC Glucose 76 10/09/21 10:38: POC Glucose 91 Micro: Microbiology 10/07/21 22:29 Nasal Secretion SARS-CoV-2 Antigen (Rapid) - Final Radiography Diagnostic Testing: Radiology Impression Chest X-Ray 10/08/21 12:16 IMPRESSION: undefined Rhythm Strip Rhythm Strip: Sinus Rhythm Rate: 87 Physical Exam Const alert, oriented x3 and no apparent distress Constitutional Narrative: Patient appears his stated age HEENT head/scalp atraumatic and moist oral mucous membranes Eyes EOMs intact bilaterally and conjunctivae normal Neck supple and no JVD Resp normal respiratory effort, no retractions, no use of accessory muscles and clear to auscultation bilaterally Cardio regular rate, regular rhythm, S1 normal heart sound, S2 normal heart sound, no murmurs and no rub GI normal to inspection, nondistended, normoactive bowel sounds, soft to palpation, non-tender and non-distended Neuro oriented x3, CN's II-XII intact bilaterally, moves all extremities and no focal motor deficits Psych affect normal Assessment & Plan Assessment/Plan (1) Toxic encephalopathy: PLAN: Plan 1. Toxic encephalopathy-exact etiology unclear but I suspect it is secondary to multiple medications at home, I will introduce some the patient's medications back today, he will be observed for any deleterious effects. #2 acute kidney failure-resolving at this time, nephrology is seeing the patient, labs will be rechecked #3 complex regional pain syndrome-complicates recovery, care and prognosis. Charges/Coding Visit Charges Inpatient E&M: 48673 Subs Hosp L2
[2021-10-09] MEDS: Metoprolol(XL)Succ 100 MG Tablet PO (12:45)
[2021-10-09] MEDS: HYDROmorphone 2 MG TABLET PO ×2 (12:45→17:52)
[2021-10-09] MEDS: 0.9% Saline Lock 10 ML Syringe IV (12:46)
[2021-10-09] MEDS: Ondansetron 4 MG/2 ML Vial IV ×2 (12:46→16:06)
[2021-10-09] MEDS: Pregabalin 75 MG Capsule PO ×2 (12:46→21:14)
--- NOTE | 2021-10-09 16:04 | PCM.PN.REN ---
Subjective Subjective no new events Objective Data Objective Data Vital Signs: Vital Signs Temp Pulse Resp BP Pulse Ox 97.4 F L 92 18 160/76 H 96 10/09/21 15:22 10/09/21 15:22 10/09/21 15:22 10/09/21 15:22 10/09/21 15:22 Oxygen Flow Rate (L/min) 2 Oxygen Delivery Method Room Air Weight: 118.9 kg Body Mass Index (BMI) 38.9 Intake & Output: Intake and Output for Last 24 Hours 10/07/21 10/08/21 10/09/21 23:59 23:59 23:59 Intake Total 2120 / 2313.33 5939.21 / 5945.11 2327.67 / 2327.67 Output Total 4450 / 4450 2450 / 2450 Balance 2120 / 2313.33 1489.21 / 1495.11 -122.33 / -122.33 Lab / Micro Data Result Diagrams: 10/09/21 04:45 10/09/21 04:45 Labs: Laboratory Results - last 24 hr 10/08/21 16:50: POC Glucose 104 10/08/21 22:26: POC Glucose 95 10/09/21 04:45: WBC 7.1, RBC 3.83 L, Hgb 12.2 L, Hct 37.4 L, MCV 97.7 H, MCH 31.9, MCHC 32.6, RDW Std Deviation 48.0 H, RDW Coeff of Diane 13.5, Plt Count 200, MPV 10.2, Immature Gran % (Auto) 0.300, Neut % (Auto) 71.8 H, Lymph % (Auto) 19.4, [place] % (Auto) 4.9, Eos % (Auto) 3.0, Baso % (Auto) 0.6, Absolute Neuts (auto) 5.1, Absolute Lymphs (auto) 1.38, Nucleated RBC % 0 10/09/21 04:45: Sodium 140, Potassium 4.9, Chloride 109 H, Carbon Dioxide 22.0, Anion Gap 9, BUN 32 H, Creatinine 1.76 H, Estim Creat Clear Calc 45.34, Est GFR (MDRD) Af Amer 52 L, Est GFR (MDRD) Non-Af 43 L, BUN/Creatinine Ratio 18.2, Glucose 80, Calcium 8.6, Phosphorus 2.9, Magnesium 2.1, Total Creatine Kinase 1098 H 10/09/21 07:49: POC Glucose 76 10/09/21 10:38: POC Glucose 91 Micro: Microbiology 10/07/21 22:29 Nasal Secretion SARS-CoV-2 Antigen (Rapid) - Final Rhythm Strip Rhythm Strip: Sinus Rhythm Rate: 87 Physical Exam Narrative Alert awake oriented x 3 no obvious distress no pallor no icterus no JVD s1s2 no murmurs lungs clear abdomen soft no organomegaly no edema no cyanosis Assessment & Plan Assessment/Plan (1) Hyperkalemia: (2) HEBERT (acute kidney injury): PLAN: likely related to volume depletion. Creatinine is significantly better. CPK levels are improving.
[2021-10-09] MEDS: Bisacodyl 5 MG Tablet 10 MG PO (16:06)
[2021-10-09 16:16] LABS: Bedside Glucose 96 mg/dL (74-106)
--- NOTE | 2021-10-09 17:11 | CM.ED ---
SW Note Referral Source: SW Referral Reason: Alcohol Issues SW reviewed chart. Patient has reported no alcohol issues to ED staff and patient's family denied any alcohol use issues. SW and ELMA Corbin met with patient. Patient denied any alcohol use. Patient reports no discharge needs. SW remains available if needs arise. SW spoke to patient's 2 daughters an 1 son (daughters live with patient and son resides in [place]). They reported no discharge needs or concerns regarding discharge planning. SW remains available if needs arise. Jailyn LAMBERT
[2021-10-09] MEDS: Nortriptyline 25 MG Capsule PO (21:14)
[2021-10-09] MEDS: Atorvastatin Calcium 10 MG Tablet PO (21:14)
[2021-10-09 21:20] LABS: Bedside Glucose 115 mg/dL (74-106)
[2021-10-10 03:09] VITALS: BP 149/90; PULSE 87; RESP 20; TEMP 36.8; O2SAT 95
[2021-10-10] MEDS: HYDROmorphone 2 MG TABLET PO ×2 (03:16→10:39)
[2021-10-10] MEDS: Lactated Ringers 1,000 ML 50 ML IV (03:16)
[2021-10-10] MEDS: Ondansetron 4 MG/2 ML Vial IV (03:16)
[2021-10-10] MEDS: 0.9% Saline Lock 10 ML Syringe IV (03:17)
[2021-10-10 04:00] VITALS: PULSE 91
[2021-10-10 06:29] VITALS: PULSE 80
[2021-10-10] MEDS: Pregabalin 75 MG Capsule PO ×2 (06:35→13:25)
[2021-10-10] MEDS: Levothyroxine 137 MCG Tablet PO (06:36)
[2021-10-10 06:55] LABS: Bedside Glucose 104 mg/dL (74-106)
[2021-10-10 08:17] LABS: Anion Gap 10 (5-15); BUN 22 mg/dL (7-18); BUN/Creat Ratio 17.3 RATIO (10-20); Calcium,Total 9.4 mg/dL (8.5-10.1); Chloride 107 mmol/L (98-107); Creatinine, Serum 1.27 mg/dL (0.70-1.30); EST Glomerular Filtration Rate 62 mL/min (>60); Est Glom Filt Rate - Afr Amer 75 mL/min (>60); Estimated Creatinine Clearance 62.83 ml/min; Glucose 119 mg/dL (74-106); Sodium Level 140 mmol/L (136-145)
[2021-10-10 08:48] VITALS: BP 162/82; PULSE 82; RESP 18; TEMP 36.6; O2SAT 96
[2021-10-10 08:50] VITALS: PULSE 82
[2021-10-10] MEDS: Pantoprazole Sodium 40 MG Tablet PO (08:50)
[2021-10-10] MEDS: Topiramate 100 MG Tablet PO (08:50)
[2021-10-10] MEDS: Pioglitazone Hydrochloride 30 MG Tablet PO (08:50)
[2021-10-10] MEDS: DULoxetine Hcl 30 MG Capsule PO (08:50)
[2021-10-10] MEDS: Heparin Injection (Vial) 5,000 UNIT/ML VIAL 5000 UNIT SC (08:50)
[2021-10-10] MEDS: Metoprolol(XL)Succ 100 MG Tablet PO (08:50)
[2021-10-10] MEDS: Lisinopril 5 MG Tablet PO (08:50)
[2021-10-10] MEDS: dilTIAZem CD 240 MG Capsule PO (08:55)
[2021-10-10 10:40] LABS: Bedside Glucose 179 mg/dL (74-106)
--- NOTE | 2021-10-10 11:23 | DCINST_ITS ---
Discharge Instructions Diet Discharge Diet: No restrictions Activity Discharge Activity: Return to Normal Activity Weight Bearing Status: Full weight bearing Follow Up Care Test Results: Test results from this visit will be discussed in further detail at your follow- up appointment, if applicable. Discharge Plan Admission Admit Date/Time: 10/07/21 21:31 Primary Reason for Your Visit: renal failure, encephalopathy Attending Provider: Greyson Richardson Primary Care Provider: GREYSON MEAD Consulting Providers: Aaron Meeks ; Armando Leos ; James Klein ; Britni Rojas NP ; Dylon Greenfield ; Brendon Rivera ; Vanessa Vega ; Katina Arroyo ; Wilfredo Desouza ; Mikey Restrepo ; George Jefferson ; Addie Tuttle Discharge Orders/Prescriptions Prescriptions: Continued metoprolol succinate 100 mg tablet extended release 24 hr 100 tab PO DAILY nortriptyline 25 mg capsule 25 cap PO QHS metformin 500 mg tablet extended release 24 hr 2 tab PO BID Label Comments: take 2 tablets by mouth twice a day 90 levothyroxine 137 mcg tablet 1 tab PO DAILY diltiazem HCl 240 mg capsule,extended release 24hr 1 cap PO DAILY pantoprazole 40 mg tablet,delayed release (DR/EC) 1 tab PO DAILY lisinopril 5 mg tablet 1 tab PO DAILY Label Comments: take 1 tablet by mouth once daily 30 pioglitazone 30 mg tablet 1 tab PO DAILY topiramate [Topamax] 100 mg tablet 1 tab PO BID Label Comments: Take 1 tablet by mouth twice a day loratadine 10 mg tablet 1 tab PO DAILY Label Comments: take 1 tablet by mouth once daily 30 rosuvastatin 10 mg tablet 1 tab PO DAILY Label Comments: take 1 tablet by mouth once daily duloxetine 30 mg capsule,delayed release(DR/EC) 1 cap PO DAILY pregabalin 75 mg capsule 1 cap PO TID Label Comments: take 1 capsule by mouth three times a day if needed Jardiance 25 mg tablet 1 tab PO BREAKFAST insulin glargine 100 unit/mL Cartridge 10 unit SUBCUT QHS senna-docusate sodium Tablet 1 tab PO DAILY Changed baclofen 10 mg tablet 10 mg PO BID Qty: 1 0RF Label Comments: take 1 tablet by mouth twice a day Rx Instructions: one twice a day as needed for muscle spasm hydromorphone 4 mg Tablet 4 mg PO TID Qty: 1 0RF Rx Instructions: 2-4 mg three times a day as needed for pain Held allopurinol 100 mg tablet 100 tab PO BID Hold Instructions: check with your physician this week before resuming this medicine Discontinued potassium chloride 10 mEq tablet extended release 1 tab PO DAILY Label Comments: take 1 tablet by mouth once daily cephalexin 500 mg capsule 1 cap PO Q12H glimepiride 4 mg tablet 1 tab PO DAILY triamterene-hydrochlorothiazid 37.5-25 mg Tablet 1 tab PO DAILY oxymorphone 20 mg tablet extended release 12 hr 1 tab PO Q12H PRN PRN (Reason: Pain, Severe) Label Comments: Take 1 tablet by mouth twice a day as directed TOTAL 60 MG levocetirizine 5 mg tablet 1 tab PO DINNER Referrals / Follow Up: GREYSON MEAD [Other] (Follow-up this week with Dr. Mead regarding medication changes) NOT,DEFINED [NON-STAFF] - Within 1 Week (follow up with Dr. Mead regarding your medicine changes) Disposition Disposition (needs filled in before D/C Order can be placed): Home, Self Care
--- NOTE | 2021-10-10 14:32 | PCM.DC.SUM ---
Providers Date of Admission: 10/07/21 Date of Discharge: 10/10/21 Primary Care Physician: GREYSON MEAD Consultations 10/08/21 01:44 Consult: Health Information Managers / Pulmonary Medicine Routine Consulting Provider: Pulmonary Medicine chung Conner Reason for Consult: severe agitation EMERGENT Consult: No Notified: Yes Date Notified: 10/08/21 Time Notified: 01:32 Method of Notification: Text 10/08/21 09:12 Consult: Nephrology Routine Consulting Provider: [facility] Reason for Consult: hebert EMERGENT Consult: No Notified: Yes Date Notified: 10/08/21 Time Notified: 09:12 Method of Notification: Answering Service Reason For Visit: HEBERT, TOXIC ENCEPHALOPATHY, RHABDOMYOLYSIS Diagnosis Discharge Diagnosis (1) Hyperkalemia: Status: Acute Code(s): E87.5 - Hyperkalemia (2) HEBERT (acute kidney injury): Status: Acute Code(s): N17.9 - Acute kidney failure, unspecified Plan 1. Toxic encephalopathy-exact etiology unclear but I suspect it is secondary to multiple prescribed medications #2 acute kidney failure-etiology unknown #3 complex regional pain syndrome-complicates recovery, care and prognosis. #4 type 2 diabetes #5 essential hypertension #6 hypothyroidism #7 rhabdomyolysis Medications at Discharge Home Medications allopurinol 100 mg tablet 100 tab PO BID Check with primary doctor 10/08/21 diltiazem HCl 240 mg capsule,extended release 24 hr 1 cap PO DAILY Check with primary doctor 10/08/21 duloxetine 30 mg capsule,delayed release 1 cap PO DAILY Check with primary doctor 10/08/21 empagliflozin 25 mg tablet (Jardiance) 1 tab PO BREAKFAST Check with primary doctor 10/08/21 insulin glargine 100 unit/mL subcutaneous cartridge 10 unit subcut QHS diabetic 10/08/21 levothyroxine 137 mcg tablet 1 tab PO DAILY Check with primary doctor 10/08/21 lisinopril 5 mg tablet 1 tab PO DAILY Check with primary doctor 10/08/21 loratadine 10 mg tablet 1 tab PO DAILY Check with primary doctor 10/08/21 metformin 500 mg tablet,extended release 24 hr 2 tab PO BID Check with primary doctor 10/08/21 metoprolol succinate 100 mg tablet,extended release 24 hr 100 tab PO DAILY Check with primary doctor 10/08/21 nortriptyline 25 mg capsule 25 cap PO QHS Check with primary doctor 10/08/21 pantoprazole 40 mg tablet,delayed release 1 tab PO DAILY Check with primary doctor 10/08/21 pioglitazone 30 mg tablet 1 tab PO DAILY Check with primary doctor 10/08/21 pregabalin 75 mg capsule 1 cap PO TID Check with primary doctor 10/08/21 rosuvastatin 10 mg tablet 1 tab PO DAILY Check with primary doctor 10/08/21 topiramate 100 mg tablet (Topamax) 1 tab PO BID Check with primary doctor 10/08/21 senna-docusate sodium tablet 1 tab PO DAILY constipation 10/09/21 baclofen 10 mg tablet 10 mg PO BID Check with primary doctor #1 TAB 10/10/21 hydromorphone 4 mg tablet 4 mg PO TID #1 TAB 10/10/21 Hospital Course Operations None Procedures Central line placement Summary of Care Provided Minutes Spent on Discharge: 32 Hospital Course: This 56-year-old white male was seen in the emergency room at [facility] with a chief complaint of shakiness and confusion, he stated he had been drowsy for the last 48 hours, patient states he was sleeping at [facility]. Patient complained of generalized weakness and fatigue. Labs were obtained, patient's hemoglobin was normal at 14.4, potassium was slightly elevated at 5.4, creatinine was elevated at 6.15 and BUN was 55. CBC showed a leukocytosis of 15.2, CPK came back at 5500. CT of the brain was negative for acute findings. Patient was admitted to ICU, he was given IV fluids, and he was seen in consultation by critical care. He was felt to have a toxic encephalopathy-possibly from prescribed drugs that he took for his medical problems. Exact etiology of this toxic encephalopathy however was unknown. Patient was seen by nephrology, they recommended fluid administration, repeat labs were obtained the following days and revealed his creatinine to have normalized. Patient was transferred to PCU, so and the patient's pain medications were not restarted. On 10/10/2021, patient was seen and examined: On examination he appeared in good health and spirits. Vital signs as documented. Skin warm and dry and without overt rashes. Neck without JVD, neck was supple, trachea midline, thyroid was normal. Lungs clear bilaterally, normal air movement was noted. Heart exam notable for regular rhythm, normal sounds and absence of murmurs, rubs or gallops. Abdomen unremarkable and without evidence of organomegaly, masses, or abdominal aortic enlargement. Bowel sounds are present, abdomen is not distended. Extremities nonedematous, no cyanosis was noted, no clubbing was noted. Neuro: Cranial nerves II through XII are grossly intact, no focal motor deficits were noted, sensation to light touch and pinprick intact, motor exam 5/5 throughout. Psych: Patient is alert and oriented x3, he does not appear anxious or depressed, he does not appear agitated. Patient appears stable for discharge home on 10/10/2021-changes were made on the patient's home-going medications and he was instructed to follow-up with his PCP this week for readjustment of his medications. Weight / BMI Weight Weight: 118.025 kg Body Mass Index (BMI) 38.9 ABG / Lab / Microbiology Data Result Diagrams: 10/09/21 04:45 10/10/21 07:38 Laboratory: Laboratory Results - last 24 hr 10/09/21 16:10: POC Glucose 96 10/09/21 21:12: POC Glucose 115 H 10/10/21 06:34: POC Glucose 104 10/10/21 07:38: Sodium 140, Potassium 5.0, Chloride 107, Carbon Dioxide 23.0, Anion Gap 10, BUN 22 H, Creatinine 1.27, Estim Creat Clear Calc 62.83, Est GFR (MDRD) Af Amer 75, Est GFR (MDRD) Non-Af 62, BUN/Creatinine Ratio 17.3, Glucose 119 H, Calcium 9.4 10/10/21 10:35: POC Glucose 179 H Microbiology: Microbiology 10/07/21 22:29 Nasal Secretion SARS-CoV-2 Antigen (Rapid) - Final D/C Instructions Discharge Diet: No restrictions Weight Bearing Status: Full weight bearing Meaningful Use Info Meaningful Use Diagnoses (Choose all that apply): None applicable Discharge Plan Admission Admit Date/Time: 10/07/21 21:31 Primary Reason for Your Visit: renal failure, encephalopathy Attending Provider: Greyson Richardson Primary Care Provider: GREYSON MEAD Consulting Providers: Aaron Meeks ; Armando Leos ; James Klein ; Britni Rojas NP ; Dylon Greenfield ; Brendon Rivera ; Vanessa Vega ; Katina Arroyo ; Wilfredo Desouza ; Mikey Restrepo ; George Jefferson ; Addie Tuttle Discharge Orders/Prescriptions Prescriptions: Continued metoprolol succinate 100 mg tablet extended release 24 hr 100 tab PO DAILY nortriptyline 25 mg capsule 25 cap PO QHS metformin 500 mg tablet extended release 24 hr 2 tab PO BID Label Comments: take 2 tablets by mouth twice a day 90 levothyroxine 137 mcg tablet 1 tab PO DAILY diltiazem HCl 240 mg capsule,extended release 24hr 1 cap PO DAILY pantoprazole 40 mg tablet,delayed release (DR/EC) 1 tab PO DAILY lisinopril 5 mg tablet 1 tab PO DAILY Label Comments: take 1 tablet by mouth once daily 30 pioglitazone 30 mg tablet 1 tab PO DAILY topiramate [Topamax] 100 mg tablet 1 tab PO BID Label Comments: Take 1 tablet by mouth twice a day loratadine 10 mg tablet 1 tab PO DAILY Label Comments: take 1 tablet by mouth once daily 30 rosuvastatin 10 mg tablet 1 tab PO DAILY Label Comments: take 1 tablet by mouth once daily duloxetine 30 mg capsule,delayed release(DR/EC) 1 cap PO DAILY pregabalin 75 mg capsule 1 cap PO TID Label Comments: take 1 capsule by mouth three times a day if needed Jardiance 25 mg tablet 1 tab PO BREAKFAST insulin glargine 100 unit/mL Cartridge 10 unit SUBCUT QHS senna-docusate sodium Tablet 1 tab PO DAILY Changed baclofen 10 mg tablet 10 mg PO BID Qty: 1 0RF Label Comments: take 1 tablet by mouth twice a day Rx Instructions: one twice a day as needed for muscle spasm hydromorphone 4 mg Tablet 4 mg PO TID Qty: 1 0RF Rx Instructions: 2-4 mg three times a day as needed for pain Held allopurinol 100 mg tablet 100 tab PO BID Hold Instructions: check with your physician this week before resuming this medicine Discontinued potassium chloride 10 mEq tablet extended release 1 tab PO DAILY Label Comments: take 1 tablet by mouth once daily cephalexin 500 mg capsule 1 cap PO Q12H glimepiride 4 mg tablet 1 tab PO DAILY triamterene-hydrochlorothiazid 37.5-25 mg Tablet 1 tab PO DAILY oxymorphone 20 mg tablet extended release 12 hr 1 tab PO Q12H PRN PRN (Reason: Pain, Severe) Label Comments: Take 1 tablet by mouth twice a day as directed TOTAL 60 MG levocetirizine 5 mg tablet 1 tab PO DINNER Referrals / Follow Up: GREYSON MEAD [Other] (Follow-up this week with Dr. Mead regarding medication changes) NOT,DEFINED [NON-STAFF] - Within 1 Week (follow up with Dr. Mead regarding your medicine changes) Disposition Disposition (needs filled in before D/C Order can be placed): Home, Self Care Charges/Coding Visit Charges Inpatient E&M: 88459 Disch Hosp
--- NOTE | 2021-10-10 14:57 | NURSING ---
Right IJ removed as per order, sutures removed. Pt tolerated procedure well, light pressure applied x 10min, no bleeding noted. dressing applied to site, instructed patient to lay flat , also instructed patient on home care of site. Catheter intact, tip removed and placed in sterile container. Leslie ALEXANDER made aware, stated Dr. Richardson said no need to send tip to lab, dicarded.
== END 2021-10-10 15:36 | disposition home or self-care (01) | DRG 682 ==
LOC: ED 21:12 → PCU 21:38 → ICU 10-08 01:37 → PCU 10-09 15:23
PROVIDERS: Internal Medicine Critical Care Medicine; Emergency Provider Student in an Organized Health Care Education/Training Program; Visit Provider Internal Medicine
DX: N17.9 Acute kidney failure, unspecified (principal); G92.8 Other toxic encephalopathy; R57.1 Hypovolemic shock; M62.82 Rhabdomyolysis; E11.9 Type 2 diabetes mellitus without complications; E66.01 Morbid (severe) obesity due to excess calories; Z79.4 Long term (current) use of insulin; I10 Essential (primary) hypertension; E87.5 Hyperkalemia; G47.33 Obstructive sleep apnea (adult) (pediatric); W06.XXXA Fall from bed, initial encounter; S00.81XA Abrasion of other part of head, initial encounter; M10.9 Gout, unspecified; Z87.891 Personal history of nicotine dependence; Z68.39 Body mass index [BMI] 39.0-39.9, adult; R09.02 Hypoxemia; Z79.899 Other long term (current) drug therapy; G89.29 Other chronic pain; Y92.833 Campsite as the place of occurrence of the external cause; T42.6X5A Adverse effect of other antiepileptic and sedative-hypnotic drugs, initial encounter; T42.8X5A Adverse effect of antiparkinsonism drugs and other central muscle-tone depressants, initial encounter; T40.2X5A Adverse effect of other opioids, initial encounter; Z86.14 Personal history of Methicillin resistant Staphylococcus aureus infection
CPT/HCPCS: 36415; 36600; 70450; 71045; 80048; 80053; 80307; 81001; 82077; 82550; 82570; 82803; 82962; 83735; 84100; 84300; 84484; 85025; 85610; 85730; 87426; 93005; 97802; 99284; J7030; J7050; J7120; A4216; C1751; J2310; J2405

== ENCOUNTER 2022-09-18 14:56 | Emergency (ER) | payer MEDICARE, SELFPAY ==
[2022-09-18 14:57] VITALS: BP 110/70; PULSE 78; RESP 16; TEMP 36.1; O2SAT 95; BMI 39.5
--- NOTE | 2022-09-18 15:30 | EX.ED.GENINJ ---
HPI History of Present Illness Chief Complaint: Nausea/Vomiting [facility] Medical History Complex regional pain syndrome Diabetes Hypertension Sleep apnea Tachycardia Home Medications allopurinol 100 mg tablet 100 tab PO BID Check with primary doctor 10/08/21 [History Last Taken Unknown] diltiazem HCl 240 mg capsule,extended release 24 hr 1 cap PO DAILY Check with primary doctor 10/08/21 [History Last Taken Unknown] duloxetine 30 mg capsule,delayed release 1 cap PO DAILY Check with primary doctor 10/08/21 [History Last Taken Unknown] empagliflozin 25 mg tablet (Jardiance) 1 tab PO BREAKFAST Check with primary doctor 10/08/21 [History Last Taken Unknown] insulin glargine 100 unit/mL subcutaneous cartridge 10 unit subcut QHS diabetic 10/08/21 [History Last Taken Unknown] levothyroxine 137 mcg tablet 1 tab PO DAILY Check with primary doctor 10/08/21 [History Last Taken Unknown] lisinopril 5 mg tablet 1 tab PO DAILY Check with primary doctor 10/08/21 [History Last Taken Unknown] loratadine 10 mg tablet 1 tab PO DAILY Check with primary doctor 10/08/21 [History Last Taken Unknown] metformin 500 mg tablet,extended release 24 hr 2 tab PO BID Check with primary doctor 10/08/21 [History Last Taken Unknown] metoprolol succinate 100 mg tablet,extended release 24 hr 100 tab PO DAILY Check with primary doctor 10/08/21 [History Last Taken Unknown] nortriptyline 25 mg capsule 25 cap PO QHS Check with primary doctor 10/08/21 [History Last Taken Unknown] pantoprazole 40 mg tablet,delayed release 1 tab PO DAILY Check with primary doctor 10/08/21 [History Last Taken Unknown] pioglitazone 30 mg tablet 1 tab PO DAILY Check with primary doctor 10/08/21 [History Last Taken Unknown] pregabalin 75 mg capsule 1 cap PO TID Check with primary doctor 10/08/21 [History Last Taken Unknown] rosuvastatin 10 mg tablet 1 tab PO DAILY Check with primary doctor 10/08/21 [History Last Taken Unknown] topiramate 100 mg tablet (Topamax) 1 tab PO BID Check with primary doctor 10/08/21 [History Last Taken Unknown] senna-docusate sodium tablet 1 tab PO DAILY constipation 10/09/21 [History Last Taken Unknown] baclofen 10 mg tablet 10 mg PO BID Check with primary doctor #1 TAB 10/10/21 [Rx Last Taken Unknown] hydromorphone 4 mg tablet 4 mg PO TID #1 TAB 10/10/21 [Rx Last Taken Unknown] ondansetron 4 mg disintegrating tablet 4 mg PO Q8H PRN nausea and vomiting 3 days #9 tabs 09/18/22 [Rx Last Taken Unknown] Allergy/AdvReac Type Severity Reaction Status Date / Time adhesive tape Allergy Other Verified 09/18/22 14:57 Sulfa (Sulfonamide Allergy Hives Verified 09/18/22 14:57 Antibiotics) Social History Smoking Status: Former smoker substance use type: does not use EXAM Physical Exam Const Vital Signs: 09/18/22 14:57 09/18/22 17:00 09/18/22 19:00 Temperature 96.9 F L Temperature Source Temporal Pulse Rate 78 79 83 Respiratory Rate 16 16 18 Blood Pressure 110/70 137/75 H 158/97 H Blood Pressure Mean 83 95 117 Pulse Ox 95 93 97 Oxygen Delivery Method Room Air Room Air Room Air MDM MDM MDM Narrative Medical decision making narrative: HISTORY OF PRESENT ILLNESS: 57-year-old male here for nausea vomiting. He is concerned by dehydration. Notes camping recently. Denies any travel, recent antibiotics or recent new foods. Denies any abdominal pain or distention. Denies any fever chest pain or shortness of breath. REVIEW OF SYSTEMS: Pertinent positives: Nausea vomiting dehydration Pertinent negatives: Fever, chest pain or shortness of breath PHYSICAL EXAM: Nursing triage notes reviewed, Vital signs reviewed Constitutional: please see mdm HENT: MMM Eyes: Pupils equal round and reactive to light, Extraocular muscles intact Neck: No stridor, no JVD, full neck ROM Lungs: Clear to auscultation, No wheezing or rales. No increased work of breathing, no conversational dyspnea, no accessory muscle use, no nasal flaring. No respiratory distress noted Heart: Regular rate and rhythm, No murmurs, No rubs and No gallops, 2+ distal pulses (radial, femoral, posterior tibial) in all extremities Abdomen: Soft, there is no tenderness, rigidity, rebound or guarding, no obvious peritoneal signs, no palpable pulsatile abdominal masses, no auscultated abdominal bruit : No CVAT Extremities: No edema Neuro: No focal neurological deficits, cranial nerves II through XII intact, 5/5 strength in all extremities. Intact sensation to light touch in all extremities, 2+ reflexes bilateral patella tendons. Normal gait. No ataxia. Skin: No rash or lesions noted MEDICAL DECISION MAKING: Chief Complaint: Nausea vomiting External records reviewed: No recent [facility] imaging of the abdomen or pelvis. CT scan of the head from 10/06 shows no acute abnormalities Factors affecting care: Diabetes Social determinants of health: Former smoker History obtained from others: Consults: None ALL IMAGES HAVE BEEN PERSONALLY REVIEWED AND INTERPRETED BY MYSELF. MDM Narrative: Patient was hemodynamically stable, afebrile, nontoxic-appearing. Abdominal exam was benign, there are no peritoneal signs I considered the following differential diagnosis: Dehydration, electrolyte abnormality, viral gastroenteritis, obstruction, perforation Patient's abdominal exam was not consistent with acute surgical pathology. Labs without evidence of electrolyte disturbance, severe dehydration or systemic inflammation. Labs unremarkable. Repeat abdominal exam remained benign pt was able to tolerate PO. Patient was given oral Zofran for home-going. He is given strict return precautions and follow-up instructions. Patient expressed understanding agree with the plan. Total critical care time today provided was at least 0 minutes. This excludes separately billable procedures. There was a high probability of clinically significant/life threatening deterioration in the patient's condition which required my urgent intervention. Shared decision making: I will have a discussion with the patient and or visitors regarding risk/benefits of further testing or admission. They will be made aware of of the risk/benefits inherent in this decision they will be given the opportunity to voice understanding. Lab Data Attestation: I reviewed the patient's lab results. Lab results narrative: CBC with no leukocytosis to suggest systemic inflammation, mild anemia, no thrombocytopenia BMP with baseline CKD Lipase is wnl indicating no pancreatic inflammation. Labs: Laboratory Results - last 24 hr 09/18/22 09/18/22 09/18/22 15:55 15:55 16:46 WBC Cancelled 8.1 Corrected WBC Cancelled RBC Cancelled 4.01 L Hgb Cancelled 12.9 L Hct Cancelled 40.4 MCV Cancelled 100.7 H MCH Cancelled 32.2 H MCHC Cancelled 31.9 L RDW Std Deviation Cancelled 53.5 H RDW Coeff of Diane Cancelled 14.3 Plt Count Cancelled 224 MPV Cancelled 10.2 Immature Gran % (Auto) Cancelled 0.600 Neut % (Auto) Cancelled 64.0 Lymph % (Auto) Cancelled 23.3 Sublette % (Auto) Cancelled 8.6 Eos % (Auto) Cancelled 2.8 Baso % (Auto) Cancelled 0.7 Absolute Neuts (auto) Cancelled 5.2 Absolute Lymphs (auto) Cancelled 1.89 Total Counted Cancelled Neutrophils % (Manual) Cancelled Band Neutrophils % Cancelled Lymphocytes % (Manual) Cancelled Monocytes % (Manual) Cancelled Eosinophils % (Manual) Cancelled Basophils % (Manual) Cancelled Metamyelocytes % Cancelled Myelocytes % Cancelled Promyelocytes % Cancelled Blast Cells % Cancelled Plasma Cell % (Manual) Cancelled Other Cells % Cancelled Nucleated RBC % Cancelled 0 Nucleated RBCs/100 WBC Cancelled Differential Comment Cancelled Diff Path Review Cancelled Hypersegmented Neuts Cancelled Atypical Lymphocytes Cancelled Reactive Lymphocytes Cancelled Smudge Cells Cancelled Toxic Granulation Cancelled Toxic Vacuolation Cancelled Dohle Bodies Cancelled Miriam Rods Cancelled Platelet Estimate Cancelled Plt Morphology Comment Cancelled RBC Morphology Cancelled Polychromasia Cancelled Hypochromasia Cancelled Poikilocytosis Cancelled Basophilic Stippling Cancelled Anisocytosis Cancelled Microcytosis Cancelled Macrocytosis Cancelled Spherocytes Cancelled Sickle Cells Cancelled Target Cells Cancelled Tear Drop Cells Cancelled Ovalocytes Cancelled Stomatocytes Cancelled Guerrier-Stapleton Bodies Cancelled Hampton Cells Cancelled Bite Cells Cancelled Crenated Cell Cancelled Acanthocytes (Spur) Cancelled Rouleaux Cancelled Schistocytes Cancelled Sodium 137 Potassium 5.0 Chloride 105 Carbon Dioxide 25.0 Anion Gap 7 BUN 35 H Creatinine 1.64 H Estim Creat Clear Calc 48.08 Est GFR (MDRD) Af Amer 56 L Est GFR (MDRD) Non-Af 46 L BUN/Creatinine Ratio 21.3 H Glucose 149 H Calcium 8.9 Lipase 49 Discharge Plan Triage Chief Complaint: Nausea/Vomiting ED Provider: Joselito Ozuna Dx/Rx/DC Orders Clinical Impression: Nausea & vomiting Instructions: ED Vomiting (Adult) Prescriptions: New ondansetron 4 mg tablet,disintegrating 4 mg PO Q8H PRN (Reason: nausea and vomiting) 3 Days Qty: 9 0RF No Action metoprolol succinate 100 mg tablet extended release 24 hr 100 tab PO DAILY allopurinol 100 mg tablet 100 tab PO BID Hold Instructions: check with your physician this week before resuming this medicine nortriptyline 25 mg capsule 25 cap PO QHS metformin 500 mg tablet extended release 24 hr 2 tab PO BID Label Comments: take 2 tablets by mouth twice a day 90 levothyroxine 137 mcg tablet 1 tab PO DAILY diltiazem HCl 240 mg capsule,extended release 24hr 1 cap PO DAILY pantoprazole 40 mg tablet,delayed release (DR/EC) 1 tab PO DAILY lisinopril 5 mg tablet 1 tab PO DAILY Label Comments: take 1 tablet by mouth once daily 30 pioglitazone 30 mg tablet 1 tab PO DAILY topiramate [Topamax] 100 mg tablet 1 tab PO BID Label Comments: Take 1 tablet by mouth twice a day loratadine 10 mg tablet 1 tab PO DAILY Label Comments: take 1 tablet by mouth once daily 30 rosuvastatin 10 mg tablet 1 tab PO DAILY Label Comments: take 1 tablet by mouth once daily duloxetine 30 mg capsule,delayed release(DR/EC) 1 cap PO DAILY pregabalin 75 mg capsule 1 cap PO TID Label Comments: take 1 capsule by mouth three times a day if needed Jardiance 25 mg tablet 1 tab PO BREAKFAST insulin glargine 100 unit/mL Cartridge 10 unit SUBCUT QHS senna-docusate sodium Tablet 1 tab PO DAILY baclofen 10 mg tablet 10 mg PO BID Qty: 1 0RF Label Comments: take 1 tablet by mouth twice a day Rx Instructions: one twice a day as needed for muscle spasm hydromorphone 4 mg Tablet 4 mg PO TID Qty: 1 0RF Rx Instructions: 2-4 mg three times a day as needed for pain Stand Alone Forms: ED Work / School Excuse Primary Care Provider: Mayo Mead Referrals: Mayo Mead [Other] Activity Restrictions/Additional Instructions: Thank you for trusting us with your care today! Please take Tylenol (2 pills, 650 mg), ibuprofen (2 pills, 400 mg) every 6 hours as needed for pain and fever control. Please take Zofran as needed for nausea and vomiting control. Please return to the emergency department if your symptoms change or worsen. Please follow with your primary care physician for further outpatient evaluation and management. Disposition Disposition: Home, Self Care Discharge Date/Time: 09/18/22 20:47
[2022-09-18] MEDS: 0.9% Normal Saline 1,000 ML 1000 ML IV (15:59)
[2022-09-18] MEDS: Ondansetron 4 MG/2 ML Vial IV (15:59)
[2022-09-18 16:20] LABS: Anion Gap 7 (5-15); BUN 35 mg/dL (7-18); BUN/Creat Ratio 21.3 RATIO (10-20); Calcium,Total 8.9 mg/dL (8.5-10.1); Chloride 105 mmol/L (98-107); Creatinine, Serum 1.64 mg/dL (0.70-1.30); EST Glomerular Filtration Rate 46 mL/min (>60); Est Glom Filt Rate - Afr Amer 56 mL/min (>60); Estimated Creatinine Clearance 48.08 ml/min; Glucose 149 mg/dL (74-106); Lipase 49 U/L (13-75); Sodium Level 137 mmol/L (136-145)
[2022-09-18 16:53] LABS: Absolute Lymphocyte Count 1.89 X10^3/uL (0.83-4.51); Absolute Neutrophil Count 5.2 X10^3/uL (2.0-7.7); Basophil# 0.06 X10^3/uL; Basophil% 0.7 % (0-1); Eosinophil# 0.23 X10^3/uL; Eosinophils% 2.8 % (0-5); Hematocrit 40.4 % (40-54); Hemoglobin 12.9 g/dL (13.0-16.5); Lymphocyte # 1.89 X10^3/ul (0.83-4.51); Lymphocyte % 23.3 % (19-41); Mean Corp Hgb Conc 31.9 g/dL (32-36); Mean Corpuscular Hgb 32.2 pg (27.0-32.0); Mean Corpuscular Volume 100.7 fL (80-94); Mean Platelet Vol. 10.2 fl (6.2-12.0); Monocyte% 8.6 % (0-10); NRBC Flagged by Analyzer 0 % (0-5); Neutrophil # 5.17 X10^3/uL (2.7-7.7); Platelet Count 224 K/mm3 (150-450); RBC Distribution Width CV 14.3 % (11.6-14.6); RBC Distribution Width SD 53.5 fl (35.1-43.9); Red Blood Count 4.01 M/mm3 (4.6-6.2); White Blood Count 8.1 K/mm3 (4.4-11.0)
[2022-09-18 17:00] VITALS: BP 137/75; PULSE 79; RESP 16; O2SAT 93
[2022-09-18 19:00] VITALS: BP 158/97; PULSE 83; RESP 18; O2SAT 97
== END 2022-09-18 20:47 | disposition home or self-care (01) ==
PROVIDERS: Emergency Provider Emergency Medicine; Visit Provider Emergency Medicine
DX: R11.2 Nausea with vomiting, unspecified (principal); E11.9 Type 2 diabetes mellitus without complications; Z79.4 Long term (current) use of insulin; I10 Essential (primary) hypertension; Z87.891 Personal history of nicotine dependence; Z79.84 Long term (current) use of oral hypoglycemic drugs
CPT/HCPCS: 36415; 80048; 83690; 85025; 96374; 99283; J7030; A4216; J2405